=== PATIENT | female | born 1970 | race Caucasian/White ===

== ENCOUNTER 2017-01-01 08:20 | Emergency (ER) | payer BC ==
[2017-01-01 08:31] VITALS: BP 87/58
--- NOTE | 2017-01-01 08:42 | UC ---
Throat Pain/Nasal Eriberto HPI - HPI Summary HPI Summary: The patient comes in today for: 1. Sore throat: Onset: "A couple of days." Palliative/provocative: Swallowing does not hurt 'that much' to swallow. Quality: Sore Region: Bilateral posterior pharynx. Severity: 6/10 Time: Constant. Associated symptoms: Fevers: No temperature taken Cough: dry. Rhinitis: Positive, not-clear Sinus pressure: Present Upper tooth aching: None. * - History of Current Complaint Chief Complaint: UCRespiratory Stated Complaint: SORE THROAT,SWOLLEN GLANDS,FEVER Hx Obtained From: Patient Hx Last Menstrual Period: 12/30/11 - Allergies/Home Medications Allergies/Adverse Reactions: Allergies Allergy/AdvReac Type Severity Reaction Status Date / Time Fluconazole [From Diflucan] Allergy See Comment Verified 01/01/17 08:31 Lactose Intolerance (GI) Allergy GI Upset Verified 01/01/17 08:31 Home Medications: Home Medications Congaplex 1 tab PO TID 01/01/17 [History Confirmed 01/01/17] Lact Enz 2 tab PO TID 01/01/17 [History Confirmed 01/01/17] Wheat Germ Oil 1 applic TOPICAL BID 01/01/17 [History Confirmed 01/01/17] PMH/Surg Hx/FS Hx/Imm Hx Previously Healthy: Yes Endocrine History Of: Denies: Diabetes, Thyroid Disease, Hyperthyroidism, Hypothyroidism, Dyslipidemia Cardiovascular History Of: Denies: Cardiac Disorders, Hypertension, Pacemaker/ICD, Myocardial Infarction , Congestive Heart Failure, Atrial Fibrillation, Deep Vein Thrombosis, Bleeding Disorders Respiratory History Of: Reports: Pneumonia - x 2 in the past 2 years Denies: COPD, Asthma, Bronchitis, Pulmonary Embolism GI/ History Of: Denies: Gastroesophageal Reflux, Ulcer, Gastrointestinal Bleed, Gall Bladder Disease, Kidney Stones, Diverticulitis, Renal Disease, Urosepsis Neurological History Of: Denies: TIA, CVA, Dementia, Seizures, Migraine Psychological History Of: Reports: Depression - In the past. Denies: Anxiety, Bipolar Disorder, Schizophrenia, Post Traumatic Stress Disorder Cancer History Of: Denies: Lung Cancer, Colorectal Cancer, Breast Cancer, Prostate Cancer, Cervical Cancer Other History Of: Negative For: HIV, Hepatitis B, Hepatitis C, Anticoagulant Therapy - Surgical History Surgical History: Yes Surgery Procedure, Year, and Place: c section, henira repair - Family History Known Family History: Negative: Cardiac Disease, Hypertension - Social History Occupation: Employed Full-time Alcohol Use: None Substance Use Type: None Smoking Status (MU): Never Smoked Tobacco - Immunization History Most Recent Influenza Vaccination: Fall 2014 Review of Systems Constitutional: Negative Skin: Negative Eyes: Negative ENT: Sore Throat, Nasal Discharge Respiratory: Cough Cardiovascular: Negative Gastrointestinal: Negative Genitourinary: Negative All Other Systems Reviewed And Are Negative: Yes Physical Exam Triage Information Reviewed: Yes Appearance: Well-Appearing, No Pain Distress, Well-Nourished Vital Signs: Initial Vital Signs Temp 98.4 F 01/01/17 08:25 Pulse 80 01/01/17 08:25 Resp 16 01/01/17 08:25 BP 87/58 01/01/17 08:25 Pulse Ox 98 01/01/17 08:25 Vital Signs Reviewed: Yes Eyes: Positive: Conjunctiva Clear. Negative: Discharge ENT: Positive: Hearing grossly normal. Negative: Pharyngeal erythema, Nasal congestion, Nasal drainage, TM bulging, TM dull, TM red, Tonsillar swelling, Tonsillar exudate Dental: Negative: Gross Decay/Caries @, Dental Fracture @ Neck: Positive: Supple, Nontender, No Lymphadenopathy. Negative: Nuchal Rigidity Respiratory: Positive: Lungs clear, No respiratory distress, No accessory muscle use. Negative: Crackles, Wheezing Cardiovascular: Positive: RRR, No Murmur Abdomen Description: Positive: Nontender, No Organomegaly, Soft. Negative: Distended, Guarding Musculoskeletal: Positive: Strength Intact, ROM Intact, No Edema Neurological: Positive: Alert, Muscle Tone Normal Psychological: Negative: Age Appropriate Behavior, Consolable Skin: Negative: rashes, breakdown Throat Pain/Nasal Course/Dx - Course Assessment/Plan: The patient was told that her strep test was normal. She was told that due to her lightly purulent rhinitis, that she may be having an early sinusitis. Treatment options were offered. She stated that she would like an antibiotic in the event she continues to worsen. Viscous lidodcaine will be also prescribed. - Differential Dx/Diagnosis Differential Diagnosis/HQI/PQRI: Laryngitis, Pharyngitis Provider Diagnoses: Upper respiratory infection. Sinusitis. PHaryngitis Discharge - Discharge Plan Condition: Stable Disposition: HOME Patient Education Materials: Pharyngitis (ED), Sinusitis (ED) Referrals: Zoya Aviles MD [Primary Care Provider] - 1 Week (Please see your primary care provider in about one to two weeks to see how well you are doing. If you get worse, please be seen sooner.)
== END 2017-01-01 09:35 | disposition home or self-care (01) ==
LOC: UCCORT 08:20
DX: J06.9 Acute upper respiratory infection, unspecified (principal); J32.9 Chronic sinusitis, unspecified; J02.9 Acute pharyngitis, unspecified; F32.9 Major depressive disorder, single episode, unspecified; Z88.8 Allergy status to other drugs, medicaments and biological substances
CPT/HCPCS: 87651; 99212; G0463

== ENCOUNTER 2018-03-06 10:41 | Emergency (ER) | payer BC ==
[2018-03-06 11:21] VITALS: BP 94/58
--- NOTE | 2018-03-06 11:43 | UC ---
Neck Pain HPI - HPI Summary HPI Summary: Patient presents complaining of combination of pain and stiffness to the left side of her neck since August of this year. She's been treated with chiropractic sessions to give her some partial relief as well as a TENS unit which also gives her partial relief. She's been taking ibuprofen as well which gives her no relief. Last evening the discomfort got worse. She denies any history of injury. She does note some tingling into her left arm since December that seems to be getting worse as well. She denies any weakness to the arm. She has no associated headache, chest pain or fever and offers no other complaints. - History of Current Complaint Chief Complaint: UCGeneralIllness Stated Complaint: NECK PAIN Time Seen by Provider: 03/06/18 11:35 Hx Obtained From: Patient Hx Last Menstrual Period: 02/23/18 Timing: Constant Pain Intensity: 8 Aggravating Factors: Movement - of neck Alleviating Factors: Other: - holding L armover her head while bent at the elbow Associated Signs & Symptoms: Negative: Fever, Nuchal Rigity, Headache - Allergies/Home Medications Allergies/Adverse Reactions: Allergies Allergy/AdvReac Type Severity Reaction Status Date / Time fluconazole Allergy See Comment Verified 03/06/18 11:20 lactose Allergy GI Upset Verified 03/06/18 11:20 PMH/Surg Hx/FS Hx/Imm Hx - Additional Past Medical History Additional PMH: mild scoliosis Other History Of: Negative For: HIV, Hepatitis B, Hepatitis C, Anticoagulant Therapy - Surgical History Surgical History: Yes Surgery Procedure, Year, and Place: c section, hernia repair - Family History Known Family History: Positive: None Negative: Cardiac Disease, Hypertension - Social History Occupation: Employed Full-time Alcohol Use: None Substance Use Type: None Smoking Status (MU): Never Smoked Tobacco - Immunization History Most Recent Influenza Vaccination: Fall 2014 Vaccination Up to Date: Yes Review Of Systems Constitutional: Positive: Negative Skin: Positive: Negative ENT: Positive: Negative Respiratory: Positive: Negative Cardiovascular: Positive: Negative Gastrointestinal: Positive: Negative Genitourinary: Positive: Negative Musculoskeletal: Positive: Other: - L neck pain with tingling LUE Neurological: Positive: Negative Psychological: Positive: Negative All Other Systems Reviewed And Are Negative: Yes Physical Exam Triage Information Reviewed: Yes Appearance: Well-Appearing Vital Signs: Initial Vital Signs Temp 99.0 F 03/06/18 11:12 Pulse 70 03/06/18 11:12 Resp 17 03/06/18 11:12 BP 94/58 03/06/18 11:12 Pulse Ox 99 03/06/18 11:12 Vital Signs Reviewed: Yes Eyes: Positive: Conjunctiva Clear ENT: Positive: Pharynx normal, TMs normal. Negative: Nasal congestion, Nasal drainage Neck: Positive: Supple, No Lymphadenopathy. Negative: Nuchal Rigidity Respiratory: Positive: Lungs clear, Normal breath sounds Cardiovascular: Positive: RRR, No Murmur Abdomen Description: Positive: Nontender, No Organomegaly, Soft Bowel Sounds: Positive: Present Musculoskeletal: Positive: Other: - Patient is holding her left upper extremity above her head and flexed at the elbow. She lowered it for exam. Inspection of the cervical, thoracic and lumbar region shows a slight scoliosis in the lumbar region otherwise no gross deformity swelling or discoloration. The spinal processes are nontender to palpation. Patient is exquisitely tender to palpation to the left lateral trapezius muscle as well as the left medial scapular border. She has 5 out of 5 strength and 2+ reflexes 4. She has full range of motion to her extremities 4. Range of motion throughout her cervical spine and back is intact; however, she notes increasing discomfort with active range of motion of cervical spine level. Neurological: Positive: Alert Psychological: Positive: Age Appropriate Behavior Skin Exam: Normal Diagnostics - Radiology No standard instances Radiology Interpretation Completed By: Radiologist - #. Multilevel mild degenerative spondylosis and facet joint osteoarthritis with progression compared with the 2012 exam. #. Minimal degenerative C4-C5 anterolisthesis is new. Neck Pain Course/Dx - Differential Dx/Diagnosis Provider Diagnoses: L neck pain. Cervical radiculopathy Discharge - Sign-Out/Discharge Documenting (check all that apply): Patient Departure - Discharge Plan Condition: Stable Disposition: HOME Prescriptions: Cyclobenzaprine TAB* [Flexeril 10 MG TAB*] 10 mg PO TID PRN #10 tab PRN Reason: Spasms - Muscle methylPREDNISolone [Medrol Dosepak 4 MG*] 0 mg PO .SEE [employer]CTION #1 tab Patient Education Materials: Cervical Radiculopathy (ED), Neck Pain (ED) Referrals: Delia Gifford PA [Primary Care Provider] - 5 Days Additional Instructions: FOLLOW UP PT NEXT AVAILABLE APPOINTMENT - Billing Disposition and Condition Condition: STABLE Disposition: Home
[2018-03-06] MEDS ORDERED: Cyclobenzaprine TAB* 10 MG PO ONE (12:37)
--- NOTE | 2018-03-06 12:50 | RAD ---
Indication: Intermittent neck pain for 6 months with progression over the past day. Radiation to the LEFT arm. Comparison: February 15, 2012 Technique: AP, open-mouth odontoid, lateral, and oblique views cervical spine. Report: Minimal degenerative C4-C5 anterolisthesis is new. Alignment is otherwise unremarkable. Negative for fracture. Minimal vertebral endplate osteophytosis from C3-C4 through C5-C6. Negative for significant disc space narrowing. Mild facet joint osteoarthritis from C3-C4 through C6-C7. The oblique views are negative for osseous foraminal stenosis. Unremarkable prevertebral soft tissue contours. IMPRESSION: #. Multilevel mild degenerative spondylosis and facet joint osteoarthritis with progression compared with the 2012 exam. #. Minimal degenerative C4-C5 anterolisthesis is new.
== END 2018-03-06 13:06 | disposition home or self-care (01) ==
LOC: UCCORT 10:41
DX: M54.12 Radiculopathy, cervical region (principal); M41.9 Scoliosis, unspecified; Z88.3 Allergy status to other anti-infective agents
CPT/HCPCS: 72050; 99212; A9270-GY; G0463

== ENCOUNTER 2018-03-24 17:16 | Emergency (ER) | payer BC ==
--- OUTSIDE RECORDS SUMMARY | 2018-03-24 17:37 | XMS REPORT ---
:1970 External Reference #:[id number] Author Organization [facility] Address [address], [address] [place] [address] Phone [phone] Care Team Providers Name Role Phone Delia Gifford, RPAC Care Team Information Traveling [employer] Unavailable Delia Gifford RPAC Primary Care Physician Unavailable Payers Type Date Identification Numbers Payment Provider Subscriber Commercial Policy Number: [id number] Edison Elias Russ PayID: [id number] [address] [address] [place] [address] Problems Date Description Provider Status Onset: 07/26/2011 Anxiety state Delia Polvadera, RPAC Active Onset: 01/15/2016 Chronic low back pain Delia Balta, RPAC Active Note: since teens Onset: 03/06/2018 Degenerative joint disease involving Delia Polvadera, RPAC Active multiple joints Note: Cervical spine Onset: 03/12/2018 Pain in left arm Delia Polvadera, RPAC Active Onset: 03/12/2018 Cervical spondylosis without Delia Polvadera, RPAC Active myelopathy Onset: 01/10/2012 Acute gastritis Delia Polvadera, RPAC Inactive Inactive: 08/16/2017 Family History Date Family Member(s) Problem(s) Comments General Prevalent cholelithiasis maternal side Father Cataracts Father 72 Father Wears glasses Father Benign Prostatic Hypertrophy Mother Alive and well Mother 72 Mother Wears Glasses First Son Alive First Son 17 First Son Wears Glasses Second Son Alive Second Son 13 First Brother Alive First Brother 48 First Brother Wears Glasses First Maternal Cousin Premenopausal breast [place] Social History Type Date Description Comments Marital Status Lives With Lives With Sons 2 Diet Healthy, Well Balanced Diet Patient is on a gluten-free diet 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 times a day as needed neck pain . Methylprednisolone 03/19 Active TBPK 4mg 1unit Dose as M79.602 s directed Alex Smallwood Hydrocodone-Ibuprofe 03/12 Active Tablets 7.5-200mg 60tab One tab M47.22 s po q 8 hr Smallwood, prn pain M.D. Betafood Active 1 tablet Unknown (Nutritional /0000 3 times Supplement) daily Atronex (Nutritional Active 1 tabe 3 Unknown Supplement) /0000 times daily Hypothalamus PMG Active 1 tab 3 Unknown (Nutritional /0000 times Supplement) daily. Orchex (Nutritional Active 1 tab 3 Unknown Suppliment) /0000 times daily. Lactic Acid Yeast Active 1 tab 2 Unknown (Nutritional /0000 times Supplement) daily. Guamanian Black Radish Active 1 tab 3 Unknown (Nutritional /0000 times Suppliment) daily. Multizyme 00 Active 1 tab 2 Unknown (Nutritional /0000 times Suppliment) daily. Cataplex Acp Active 1 tab 3 Unknown (Nutritional /0000 times Supplement) daily. Calm (Nutritional 00 Active 1 tab 3 Unknown Suppliment) /0000 times daily. Calm Magensium Active 1 tab 2 Unknown (Nutritional /0000 times Supplement) daily. No Active 07/31 Hx Unknown Medications /2016 - 07/31 Various Nutritional 01/19 Hx Unknown Supplements /2016 - 03/12 Azithromycin 05/30 Hx Tablets 250mg 6tabs take 2 Stacy tabs on Christine, - day 1 and MD 08/01 take one tab days 2-5 Physical Therapy 02/28 Hx low back Thomas Aceves Order pain, Luis Antonio DO - please 08/01 evaluate /2015 and treat. 2-3 times per week for 6 weeks No Active 01/14 Hx Thomas Vitale. Medications Luis Antonio DO - 01/14 Nystatin 01/14 Hx Cream 210657Sxz 30gm thin B37.3 Stacy t/GM layer to Christine, - affected 03/01 area times a day Meloxicam 01/14 Hx Tablets 15mg 30tab 1 tab by M46.1 Thomas Vitale. /2015 s mouth Luis Antonio DO - every day 05/30 with food Multivitamin Adult Hx Tablets 1 by Unknown /0000 mouth every day Gabapentin Hx Capsules 300mg 120ca 1 capsule M47.22 Conrad /0000 ps by mouth Smallwood, - every 6 M.D. 03/19 hr. /2018 Methylprednisolone Hx Tablets 4mg 1 tab by Unknown /0000 mouth - every day 03/19 after meals Immunizations CPT Code Status Date Vaccine Lot # [id number] Given 08/01/2016 Influenza Virus Vaccine Split Virus Use For [id number] Individual 3Yr Older [id number] Given 06/12/2015 Influenza Vaccine (Fluzone) Age 3 And Older 70614 Given 07/21/2014 flu vaccination 61174 Given 06/05/2013 flu vaccination 09559 Given 07/25/2012 flu vaccination 92884 Given 04/18/2011 flu vaccination Vital Signs Date Vital Result Comment 03/19/2018 BP Systolic Sitting Right Arm 108 mmHg BP Diastolic Sitting Right Arm 62 mmHg Body Temperature 98.7 F Heart Rate 75 /min reg Respiratory Rate 24 /min Height 60.75 inches 5'0.75" Weight 125.00 lb BMI (Body Mass Index) 23.8 kg/m2 BSA (Body Surface Area) 1.54 m2 Cuero body weight in kilograms 47 O2 % BldC Oximetry 98 % ra 03/12/2018 BP Systolic Sitting Right Arm 102 mmHg BP Diastolic Sitting Right Arm 60 mmHg Heart Rate 88 /min Respiratory Rate 18 /min Height 60.75 inches 5'0.75" Weight 123.25 lb BMI (Body Mass Index) 23.5 kg/m2 BSA (Body Surface Area) 1.53 m2 Cuero body weight in kilograms 47 O2 % BldC Oximetry 98 % ra 07/31/2017 BP Systolic Sitting Right Arm 88 mmHg BP Diastolic Sitting Right Arm 62 mmHg Heart Rate 75 /min Height 60.75 inches 5'0.75" Weight 123.00 lb BMI (Body Mass Index) 23.4 kg/m2 BSA (Body Surface Area) 1.53 m2 Cuero body weight in kilograms 47 O2 % BldC Oximetry 95 % 05/30/2016 BP Systolic Sitting Right Arm 102 mmHg BP Diastolic Sitting Right Arm 62 mmHg Body Temperature 97.8 F Height 60 inches 5'0" Weight 128.12 lb BMI (Body Mass Index) 25.0 kg/m2 BSA (Body Surface Area) 1.54 m2 01/15/2016 BP Systolic Lying Down Resting Right Arm 102 mmHg BP Diastolic Lying Down Resting Right Arm 64 mmHg Body Temperature 98.5 F Height 60 inches 5'0" Weight 129.38 lb BMI (Body Mass Index) 25.3 kg/m2 BSA (Body Surface Area) 1.55 m2 Cuero body weight in kilograms 45 07/30/2014 BP Systolic 98 mmHg BP Diastolic 60 mmHg Results Test Date Test Result H/L Range Note Basic Metabolic Panel 03/08/2018 Glucose 85 mg/dL 74-106 1 BUN 11 mg/dL 7-18 1 Creatinine 0.7 mg/dL 0.6-1.3 1 Glom Filtration Rate, Estimate >60 mL/min >60 1 If >60 mL/min >60 1, 2 BUN/Creat 15.7 ratio 1 Sodium 142 mmol/L 136-145 1 Potassium 3.9 mmol/L 3.5-5.1 1 Chloride 109 mmol/L High 98-107 1 Carbon Dioxide 29 mmol/L 21-32 1 Anion Gap 4 mEq/L Low 8-16 1 Calcium 7.9 mg/dL Low 8.5-10.1 1 Laboratory test 03/07/2018 Sedimentation Rate 7 mm/hr 0-20 3, 4 finding Laboratory test 12/24/2013 Urine HCG (Qualitative) Negative Negative 5 finding Laboratory test 11/18/2013 Free T4 0.68 ng/mL 0.61-1.12 finding Prolactin 13.8 ng/mL 1.0-25.0 TSH (Thyroid Stimulating Horm) 4.11 IU/mL 0.34-5.60 CBC No Diff 11/18/2013 Hematocrit 37 % 35-47 Hemoglobin 12.8 g/dL 12.0-16.0 Mean Corpuscular HGB Conc 35 g/dL 31-36 Mean Corpuscular Hemoglobin 31 pg 27-31 Mean Corpuscular Volume 91 fL 80-97 Mean Platelet Volume 9 um3 7.4-10.4 Platelet Count 249 10^3/uL 150-450 Red Blood Count 4.08 10^6/uL 4.0-5.4 Red Cell Distribution Width 14 % 10.5-15 White Blood Count 5.6 10^3/uL 4.8-10.8 Chlamydia/GC Monica 06/05/2013 Chlamydia Trachomatis, Monica Negative Negative Neisseria Gonorrhoeae, Monica Negative Negative Please note: See Note 6 Laboratory test finding 08/20/2012 Antinuclear Antibodies, Ifa Negative . 7 Bas% 0.0 % 0.0-1.1 Baso # 0.00 K/uL 0.0-0.1 Beef <0.08 Class 0 kU/L Chicken <0.08 Class 0 kU/L Chocolate/Happy F052 <0.08 Class 0 kU/L Complement C3, Serum 103 mg/dL 90-180 8 Complement C4, Serum 24 mg/dL 9-36 9 Complement, Total (CH50) 56 U/mL 22-60 10 Marble <0.08 Class 0 kU/L 11 Egg (Whole) <0.08 Class 0 kU/L Eo% 0.0 % 0.0-6.6 Eos # 0.00 K/uL 0.0-0.5 F033 [place]ton <0.08 Class 0 kU/L Hematocrit 34.1 % Low 36.0-46.1 Hemoglobin 11.7 gm/dL 11.6-15.8 Immunoglobulin E,Total 3 IU/mL 0-100 Lymph # 2.09 K/uL 0.8-3.4 Lymph % 34.8 % 17.0-46.1 Mean Cell Volume 93.7 fl 80.9-99.0 Mean Corpuscular HGB 32.1 pg 25.9-32.7 Mean Corpuscular HGB Conc 34.3 g/dL 30.8-34.3 Mean Platelet Volume 10.0 fL 8.9-12.4 Milk (Cow) <0.08 Class 0 kU/L [place] # 0.48 K/uL 0.3-0.9 [place] % 8.0 % 4.3-13.2 Neut# 3.43 K/uL 1.0-7.0 Neut% 57.2 % 40.4-72.8 Peanut <0.08 Class 0 kU/L Platelet Count 229 K/uL 155-360 Red Blood Count 3.64 M/uL Low 3.90-5.40 Red Cell Distri Width %CV 12.0 % 11.7-14.4 Red Cell Distri Width SD 39.7 fl 3-47 Rice <0.08 Class 0 kU/L Soybean <0.08 Class 0 kU/L Thyroid Stim Hormone 1.02 uIU/mL 0.49-4.67 Thyroxine (T4) 7.0 g/dL 5.3-14.8 Tomato <0.08 Class 0 kU/L 12 Triiodothyronine,Total 97 ng/dL 71-180 Tryptase 3.0 ug/L 2.2-13.2 Wheat <0.08 Class 0 kU/L White Blood Count 6.0 K/uL 3.1-10.7 Laboratory test finding 05/23/2012 ThinPrep Pap: Cervix/Endocx See Note 13 Vitamin D, 25 Hydroxy 04/19/2012 25-Hydroxy Vitamin D Total 52 ng/mL () 14 25-Hydroxy Vitamin D2 <4.0 ng/mL () 25-Hydroxy Vitamin D3 52 ng/mL () Liver Function Panel 04/19/2012 Albumin 4.4 GM/DL 3.6-5.4 Albumin/Globulin Ratio 1.9 1-3 Alkaline Phosphatase 44 U/L 30-110 Alt (SGPT) 18 U/L 14-54 Ast (Sgot) 25 U/L 12-42 Bilirubin Direct 0.1 mg/dL 0.1-0.5 Bilirubin Total 0.6 mg/dL 0.4-1.5 15 Globulin 2.3 GM/DL 2-4 Indirect Bilirubin 0.5 mg/dL 0.3-1.0 16 Total Protein 6.7 GM/DL 6.2-8.1 CBC Auto Diff 04/19/2012 Abs Basophils 0 0-0.2 Abs Eosinophils 0 0-0.6 Abs Lymphs 2.6 1.0-4.8 Abs Mononuclear 0.5 0-0.8 Absolute Neutrophil Count 3.7 1.5-7.7 Basophil % 0.2 % 0-2 Eosinophil % 0.1 % 0-6 Gran % 54.2 % 38-83 Hematocrit 39 % 35-47 Hemoglobin 14.0 g/dL 12.0-16.0 Lymph % 37.5 % 20-45 Mean Corpuscular HGB Cone 36 g/dL 32-36 Mean Corpuscular Hemoglob 34 pg High 27-31 Mean Corpuscular Volume 93 um3 79-97 Mean Platelet Volume 8.1 um3 7.4-10.4 Mononuclear % 8.0 % 1-9 Platelet Count 267 CUMM 150-450 Red Cell Count 4.18 CUMM Low 4.2-5.4 Redcell Distribution WDTH 12 % 10.5-15 White Blood Count 6.9 CUMM 4.8-10.8 Basic Metabolic Panel 04/19/2012 Anion Gap 6.0 mmol/L 2-11 17 BUN 12 mg/dL 6-24 BUN/Creatinine Ratio 15.0 8-20 Calcium 9.4 mg/dL 8.1-9.9 Chloride 99 mmol/L Low 101-111 Co2 (Carbon Dioxide) 30.0 mmol/L 22-32 Creatinine 0.8 mg/dL 0.50-1.40 Glucose 96 mg/dL 70-100 One Over Creatinine 1.25 Potassium 3.7 mmol/L 3.5-5.0 Sodium 135 mmol/L 135-145 eGFR 101.7 > 60 18 eGFR Non- 79.0 > 60 Laboratory test finding 04/19/2012 Estradiol 142 pg/mL 19 FSH 10.12 MIU/ML 20 TSH 2.86 MIU/ML 0.34-5.60 Varicella Zoster 01/01/2012 M <See Note> 21 Culture Laboratory test 10/06/2011 Gastric See Note 22 finding Biopsy/Polyp Stool Occult Blood 3 08/04/2011 Occult Blood #1 Pos Spec MCR Stool Occult Blood #2 Stool Pos Occult Blood #3 Stool Pos Urine Culture & Sensitivi 07/26/2011 M <See Note> 23 Laboratory test finding 04/18/2011 Cytology Pap See Note 24 1 CERVICAL RADICULOPATHY 2 Note: Persistent reduction for 3 months or more in an eGFR <60 mL/min/1.73 m2 defines CKD. Patients with eGFR values >/=60 mL/min/1.73 m2 may also have CKD if evidence of persistent proteinuria is present. The original MDRD equation for estimated GFR is not valid for patients less than 18 years of age. Additional information may be found at www.kdoqi.org. 3 L ARM PINCHED NERVE CAUSING PAIN 4 Method: Sediplast Modified Westergren 5 FIRST MORNING SPECIMENS GENERALLY CONTAIN THE HIGHEST CONCENTRATION OF HCG AND ARE RECOMMENDED FOR EARLY DETECTION OF . 6 Acceptable specimens for this test are male urethral swab, endocervical swab and liquid based pap specimens, vaginal swabs in APTIMA transports and first void urine. See online Directory of Services for test number for rectal and pharyngeal specimens. Performed at: [address] [id number] Speech Language Pathologist Assistant: Nemo Taveras MD, Phone: [phone] 7 Negative <1:80 Borderline 1:80 Positive >1:80 8 INFCE Result Units: mg/dL Adult 9 INFCE Result Units: mg/dL Adult 10 Performed at: [address] [id number] Speech Language Pathologist Assistant: Nemo Taveras MD, Phone: [phone] 11 Levels of Specific IgE Class Description of Class -- ----- <0.08 0 Negative 0.08 - 0.15 I 0.16 - 0.50 II Increasing 0.51 - 2.50 III levels 2.51 - 12.50 IV of 12.51 - 62.50 V Specific IgE 62.51 - >100.00 Antibody 12 Test(s) 576020-O228-TnF Chocolate/Happy; 672667- U220-GkO Beef; 725003-S137 -IgE Chicken; 377088- B675-EdF Egg, Whole were developed and had performance characteristics determined by [facility]. These tests have not been cleared or approved by the U.S. Food and Drug Administration. The FDA has determined that such clearance or approval is not necessary. These tests are used for clinical purposes. These should not be regarded as investigational or for research. 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 PAP ACCESSI QUESTIONNAIRE 08/30 PERTINENT CLINICAL HISTORY FOR PAP (FARMER DIVERSIFIED CROPS) CYTOLOGY (Check all that apply) : ? N Post ? N Menopause? N LMP date: 04/26/12 Last Pap: at [facility]? N Abnormal Pap? If Yes, date: If patient had related surgical procedure: Related Therapy: Significant Clinical History: ANNUAL ===== DISCLAIMER: The Pap smear is a screening test and not a diagnostic procedure. False negative and false positive results can and do occur for a number of reasons. Regular screening provides an aid in detecting treatable cervical abnormalities, but should not be used as the only means for detecting cervical dysplasia and carcinoma. ----- GABRIELLE Ring 05/25/12 1724 ----- 14 -- REFERENCE VALUE -- 25-HYDROXY D TOTAL (D2+D3) Optimum levels in the normal population are 25-80 Test Performed by: [facility] - [address] [address] Continuous Miner Operator: Jacky Vora III, M.D. 15 A metabolite of Naproxen, O-desmethylnaproxen, has been shown to interfere with the [place] method for measuring total bilirubin. Samples from patients who have taken Naproxen have shown spurious elevation in total bilirubin levels. 16 Please note updated reference range, effective 03/11/10 17 Anion gap measurement may be of limited value in the presence of any alkalosis, especially in a combined acid base disorder. . 18 Because ethnic data is not always readily available, this report includes an eGFR for both -Americans and non- Americans. The National Kidney Disease Education Program (NKDEP) does not endorse the use of the MDRD equation for patients that are not between the ages of 18 and 70, are , have extremes of body size, muscle mass, or nutritional status, or are non- or non-. According to the National Kidney Foundation, irrespective of diagnosis, the stage of the disease is based on the level of kidney function: Stage Description GFR(mL/min/1.73 m(2)) 1 Kidney damage with normal or decreased GFR 90 2 Kidney damage with mild decrease in GFR 60- 89 3 Moderate decrease in GFR 30-59 4 Severe decrease in GFR 15-29 5 Kidney failure <15 (or dialysis) 19 EXPECTED RESULTS (pg/ml) MALES 20-75 POSTMENOPAUSAL FEMALES 20-88 NON FEMALES Mid-Follicular Phase 24-114 Periovulatory 62-534 Mid Luteal Phase 80-273 20 NORMAL RANGE MALES 1 - 20 NORMALLY MENSTRUATING FEMALES - Follicular Phase 3 - 9 - Mid-Cycle Peak 4 - 23 - Luteal Phase 1 - 6 POSTMENOPAUSAL FEMALES 16 - 114 . 21 ------- RUN DATE: 01/04/12 [facility] NMI LIVE PAGE 1 RUN TIME: 1432 Specimen Inquiry RUN USER: INTERFACE ----- Name: ANNALISE RUSS Accsony#: [id number] Status: DEP CLI Re01/01/12 Age/Sex: 41/F Unit#: [id number] Location: [facility] [place] : 70 ----- SPEC #: [id number] BETTYE: 01/01/12-1355 STATUS: COMP REQ #: [id number] RECD: 01/02/[address] [facility] [address]: King MELO,Tanisha Aceves SOURCE: [facility] ENTR: 01/02/12- [address] [facility] [address]: Stefan MELO,Zoya SPDESC: WRIST,RIGH ORDERED: VIRUS CULT DERM ACT WKST: SO 01/04/12 #1 ----- Procedure Result Verified Site ----- > VIRUS CULTURE - DERMAL Final 01/04/12-1432 ML HERPES SIMPLEX RAPID PCR NEGATIVE VARICELLA BY RAPID PCR NEGATIVE Analyte Specific Reagent. This test was developed and its performance characteristics determined by Laboratory Medicine and Pathology, [facility], [facility]. This test has not been cleared or approved by the U.S. Food and Drug Administration. Test performed by: [facility] [address] [place] [id number] ----- - [facility] State Permit #[id number] [address] [place] [address] ----- DEPARTMENT OF PATHOLOGY, [address] [place] [address] [facility] Permit #[id number] Dustin Salinas M.D. Director Ciara Vazquez M.D. Dry Wall N[employer]er ----- 22 OPERATION/PROCEDURE Colonoscopy, EGD DIAGNOSIS: PART 1: "RANDOM COLON BIOPSIES": BENIGN, NONDYSPLASTIC AND NONINFLAMED COLONIC MUCOSA. ESSENTIALLY NORMAL DUODENAL MUCOSA. PART 2: "DUODENAL BIOPSIES": ESSENTIALLY NORMAL DUODENAL MUCOSA. PART 3: "STOMACH BIOPSIES": REACTIVE GASTROPATHY, DIFFERENTIAL DIAGNOSIS INCLUDES ALKALINE REFLUX, NSAID INJURY AND EARLY PEPTIC INJURY. NO HELICOBACTER SEEN WITH SPECIAL STAIN. CADEN/mireya INTERPRETATION COMMENT Part 1 has presumed duodenal tissue contaminant. GROSS Part 1; "RANDOM COLON BIOPSIES". The specimen is received in an appropriately labeled container. This contains seven strip-like childers colored pieces of soft tissue measuring up to 0.3 cm.; filtered and submitted in toto within a single cassette. Part 2; "DUODENAL BIOPSIES". The specimen is received in an appropriately labeled container. This contains three rounded pink colored pieces of soft tissue measuring up to 0.2 cm.; filtered and submitted in toto within a single cassette. Part 3; "STOMACH BIOPSIES". The specimen is received in an appropriately labeled container. This contains two strip-like pink colored pieces of soft tissue measuring up GROSS (Continued) to 0.4 cm.; filtered and submitted in toto within a single cassette. WS/clf MICROSCOPIC Part 1: Sections reveal mildly edematous fragments of colonic mucosa. There is no significant inflammation. There are no specific features such as granulomas, subepithelial collagen thickening, viral nuclear changes, abnormal eosinophil or lymphocytic infiltrates, vascular changes or pseudomembranes noted. Sections reveal duodenal mucosa with well-oriented crypts, with normal maturation of lining cells to the surface. The stroma contains a normal degree of lymphoplasmacytic infiltration. Part 2: Sections reveal duodenal mucosa with well-oriented crypts, with normal maturation of lining cells to the surface. The stroma contains a normal degree of lymphoplasmacytic infiltration. Part 3: Sections show glandular elongation, tortuosity, and hypercellularity of gastric pits, foveolar hyperplasia, and villiform transformation of the mucosa. The glands appear more angular than usual. Foveolar cells show mild mucin depletion and vacuolization. There is capillary congestion, vasodilatation and edema. Smooth muscle fibers extend high into the lamina propria. There are sparse amounts of chronic inflammatory cells. There are no Helicobacter-type bacteria identified with Warthin-Starry staining. The controls are adequate. PRE OPERATIVE DIAGNOSIS Diarrhea, bleed, abdominal pain, bloat REVIEW CODE CODE: I ----- VERONICA Piper MD 10/07/11 1338 ----- ------- RUN DATE: 07/28/11 [facility] NMI LIVE PAGE 1 RUN TIME: 1058 Specimen Inquiry RUN USER: INTERFACE ----- Name: ANNALISE RUSS Status: REG REF Re07/26/11 Age/Sex: 40/F Unit#: [id number] Location: [facility] : 70 ----- SPEC #: [id number] BETTYE: 07/26/11 STATUS: COMP REQ #: [id number] RECD: 07/26/11-[address] URINE ENTR: 07/26/11-[address]: IVAN: ORDERED: URINE C S QUERIES: SPECIMEN DESCRIPTION: URINE, RANDOM ACT WKST: UR 07/28/11 #1 ----- Procedure Result Verified Site ----- > URINE CULTURE SENSITIVI Final 07/28/11-1057 ML FINAL: NO GROWTH DAY 2 (<1,000 CFU/mL) ----- ML - [facility] State Permit #[id number] [address] [place] [address] ----- DEPARTMENT OF PATHOLOGY, [address] [place] [address] [facility] Permit #[id number] Alex Aquino M.D. Dry Wall Nailer ----- 24 Cytology Laboratory [address] [place] [address], [address] [place] [address] CYTOLOGY REPORT Name: Annalise Russ : 1970 (Age: 40) Sex: F Location: [facility] Soc. Sec. #: [id number] Date Collected: 04/18/2011 Billing #: [id number] Date Received: 04/19/2011 Physician(s): ZOYA ARNOLD MD Source of Specimen: ENDOCERVICAL/ECTOCERVICAL THIN PREP Clinical Information: Date of Last Menstrual Period: 03/26/11 Menstrual History: Regular Specimen Adequacy: SATISFACTORY FOR EVALUATION. NO ENDOCERVICAL/TRANSFORMATION ZONE. General Categorization: NEGATIVE FOR INTRAEPITHELIAL LESION OR MALIGNANCY. kfs Electronic Signature MAYITO Vela (ASCP) Reported: 04/22/2011 Also seen by:MAYITO Vela (ASCP ) Cytology Outreach [facility] ICD-9 Code(s) V72.31 Procedures Date CPT Code Description Status Comment 08/16/2017 Mammogram Completed Subsequent bx with Kaiden Jackson 03/01/2017 84624 Eye Exam New Patient Completed Comprehensive 12/24/2013 25401 Anesthesia, Hysteroscopy, Completed Hystersalpingography 10/06/2011 Colonoscopy Completed 10/01/2010 39684 Pressurized/Non-Pressurized Completed Inhalation Treatment,Acute Obstructio Encounters Type Date Location Provider CPT E/M Dx Office Visit 03/12/2018 1:30p Primary Care Office Delia Gifford 12359 M47.22 [facility] M79.602 Office Visit 07/31/2017 1:00p Primary Care Office Delia Gifford 44602 Z01.419 [facility] Z12.4 Z12.31 Z80.3 Office Visit 05/30/2016 2:20p [place] [address] J06.9 Office Visit 01/15/2016 1:45p Primary Care Office Delia Gifford [facility] [address] B37.3 R51 M54.5 M46.1 Plan of Care Future Appointment(s):07/31/2018 1:00 pm - [facility]03/19/2018 - Delia Gifford, RPACM47.22 Other spondylosis with radiculopathy, cervical regionNew Medication:Lyrica 75 mgComments:Discussed recent studies, medication use, options for tx.Substitute Lyrica for gabapentin.Referral:Nidia Norman, Pain Management-oymzqrmxbC00.602 Pain in left armNew Medication:Methylprednisolone 4 mgComments:Will restart the methylprednisolone taper
--- OUTSIDE RECORDS SUMMARY | 2018-03-24 17:37 | XMS REPORT ---
:1970 External Reference #:[id number] Author Organization [facility] Address [address], [address] [place] [address] Phone [phone] Care Team Providers Name Role Phone Delia Gifford RPAC Primary Care Physician Unavailable Payers Type Date Identification Numbers Payment Provider Subscriber Commercial Policy Number: [id number] Jovan Elias Oswald Ramirez PayID: [id number] [address] [address] [place] [address] Problems Date Description Provider Status Onset: 07/26/2011 Anxiety state PREM Orosco Active Onset: 01/15/2016 Chronic low back pain PREM Orosco Active Note: since teens Onset: 03/06/2018 Degenerative joint disease involving PREM Orosco Active multiple joints Note: Cervical spine Onset: 01/10/2012 Acute gastritis PREM Orosco Inactive Inactive: 08/16/2017 Family History Date Family [...] Form Strength Qnty SIG Indications Ordering Provider Hydrocodone-Ibu Active Tablets 7.5-200mg 60tabs One tab po M47.22 Conrad profen 018 q 8 hr prn [place], pain M.D. Betafood Active 1 tablet 3 Unknown (Nutritional 000 times Supplement) daily Atronex Active 1 tabe 3 Unknown (Nutritional 000 times Supplement) daily Hypothalamus Active 1 tab 3 Unknown PMG 000 times (Nutritional daily. Supplement) Orchex Active 1 tab 3 Unknown (Nutritional 000 times Suppliment) daily. Lactic Acid Active 1 tab 2 Unknown Yeast 000 times (Nutritional daily. Supplement) Latvian Black Active 1 tab 3 Unknown Radish 000 times (Nutritional daily. Suppliment) Multizyme Active 1 tab 2 Unknown (Nutritional 000 times Suppliment) daily. Cataplex Acp Active 1 tab 3 Unknown (Nutritional 000 times Supplement) daily. Calm Active 1 tab 3 Unknown (Nutritional 000 times Suppliment) daily. Calm Magensium Active 1 tab 2 Unknown (Nutritional 000 times Supplement) daily. No Active Hx Unknown Medications 017 - 017 Various Hx Unknown Nutritional 017 - Supplements 018 Azithromycin Hx Tablets 250mg 6tabs take 2 Stacy 016 - tabs on MD Christine day 1 and 016 take one tab days 2-5 Physical Hx low back Thomas Aceves Therapy Order 016 - Luis Antonio ybarra DO please 016 evaluate and treat. 2-3 times per week for 6 weeks No Active Hx Thomas Vitale. Medications 016 - Luis Antonio DO 016 Nystatin Hx Cream [id number] 30gm thin layer B37.3 Stacy 016 - /GM to MD Christine affected 017 area four times a day Meloxicam Hx Tablets 15mg 30tabs 1 tab by M46.1 Thomas Aceves 016 - mouth Luis Antonio DO every day 016 with food Multivitamin 0 Hx Tablets 1 by mouth Unknown Adult 000 every day Immunizations CPT Code Status Date Vaccine Lot # 74341 Given 08/01/2016 Influenza Virus Vaccine Split Virus Use For [id number] Individual 3Yr Older Q2038 Given 06/12/2015 Influenza Vaccine (Fluzone) Age 3 And Older 14971 Given 07/21/2014 flu vaccination 37463 Given 06/05/2013 flu vaccination 88700 Given 07/25/2012 flu vaccination 04021 Given 04/18/2011 flu vaccination Vital Signs Date Vital Result Comment 03/12/2018 BP Systolic Sitting Right Arm 102 mmHg BP Diastolic Sitting Right Arm 60 mmHg Heart Rate 88 /min Respiratory Rate 18 /min Height 60.75 inches 5'0.75" Weight 123.25 lb BMI (Body Mass Index) 23.5 kg/m2 BSA (Body Surface Area) 1.53 m2 [place] body weight in kilograms 47 O2 % BldC Oximetry 98 % ra 07/31/2017 BP Systolic Sitting Right Arm 88 mmHg BP Diastolic Sitting Right Arm 62 mmHg Heart Rate 75 /min Height 60.75 inches 5'0.75" Weight 123.00 lb BMI (Body Mass Index) 23.4 kg/m2 BSA (Body Surface Area) 1.53 m2 [place] body weight in kilograms 47 O2 % [...] kg/m2 BSA (Body Surface Area) 1.55 m2 [place] body weight in kilograms 45 07/30/2014 BP [...] 0 kU/L Chicken <0.08 Class 0 kU/L Chocolate/Eagle F052 <0.08 Class 0 kU/L Complement C3, Serum 103 mg/dL 90-180 8 Complement C4, Serum 24 mg/dL 9-36 9 Complement, Total (CH50) 56 U/mL 22-60 10 [place] <0.08 Class 0 kU/L 11 Egg (Whole) <0.08 Class 0 kU/L Eo% 0.0 % 0.0-6.6 Eos # 0.00 K/uL 0.0-0.5 F033 [place] <0.08 Class 0 kU/L Hematocrit 34.1 % Low 36.0-46.1 Hemoglobin 11.7 gm/dL 11.6-15.8 Immunoglobulin E,Total 3 IU/mL 0-100 Lymph # 2.09 K/uL 0.8-3.4 Lymph % 34.8 % 17.0-46.1 Mean Cell Volume 93.7 fl 80.9-99.0 Mean Corpuscular HGB 32.1 pg 25.9-32.7 Mean Corpuscular HGB Conc 34.3 g/dL 30.8-34.3 Mean Platelet Volume 10.0 fL 8.9-12.4 Milk (Cow) <0.08 Class 0 kU/L [place] # 0.48 K/uL 0.3-0.9 [place] % 8.0 % 4.3-13.2 Neut# 3.43 K/uL [...] for rectal and pharyngeal specimens. Performed at: [facility] [address] [id number] Sheet Metal Assembler: Nemo Taveras MD, Phone: [phone] Negative <1:80 Borderline 1:80 Positive >1:80 8 INFCE Result Units: mg/dL Adult 9 INFCE Result Units: mg/dL Adult 10 Performed at: [facility] [address] [id number] Sheet Metal Assembler: Nemo Taveras MD, Phone: [phone] Levels of Specific IgE Class Description of Class -- ----- <0.08 0 Negative 0.08 - 0.15 I 0.16 - 0.50 II Increasing 0.51 - 2.50 III levels 2.51 - 12.50 IV of 12.51 - 62.50 V Specific IgE 62.51 - >100.00 Antibody 12 Test(s) 307720-C610-CxH Chocolate/Eagle; 051711- L990-UrU Beef; 421919-G305 -IgE Chicken; 046060- Q560-PhS Egg, Whole were developed and had performance characteristics determined by [facility]. These tests have not been cleared or approved by the U.S. Food and Drug Administration. The FDA has determined that such clearance or approval is not necessary. These tests are used for clinical purposes. These should not be regarded as investigational or for research. Performed at: [address] [id number] Sheet Metal Assembler: Nemo Taveras MD, Phone: [phone] Performed at: [address] [id number] Sheet Metal Assembler: Veronica Gilbert MD, Phone: [phone] CYTOLOGY SCREENER - SUPERVISORY FORESTER @ 10/01 Screened by: MAYITO Ruiz(ASCP) PAP: FINAL REPORT SPECIMEN ADEQUACY: SPECIMEN SATISFACTORY FOR INTERPRETATION INTERPRETATION: NEGATIVE FOR INTRAEPITHELIAL LESION OR MALIGNANCY COMMENT: FUNGAL ORGANISMS MORPHOLOGICALLY CONSISTENT WITH GUNJAN SPP BENIGN CELLULAR CHANGES ASSOCIATED WITH INFLAMMATION THINPREP PREPARED PAP SLIDE # Prepared in the Cytology laboratory from the ThinPrep sample is 1 ThinPrep smear. PAP ACCESSI QUESTIONNAIRE 08/30 PERTINENT CLINICAL HISTORY FOR PAP (SUPERVISORY FORESTER) CYTOLOGY (Check all that apply) : ? N Post ? N Menopause? N LMP date: 04/26/12 Last Pap: at [facility]? N Abnormal Pap? If Yes, date: [...] normal population are 25-80 Test Performed by: [place] [address] Warehouse Shift Supervisor: Jacky Vora III, M.D. 15 A metabolite of Naproxen, O-desmethylnaproxen, has been shown to interfere with the Jendrassik-Jan method for measuring total bilirubin. Samples from [...] 114 . 21 ------- RUN DATE: 01/04/12 [facility] NMI LIVE PAGE 1 RUN TIME: 1432 Specimen Inquiry RUN USER: INTERFACE ----- Name: ANNALISE RUSS Status: DEP CLI Re01/01/12 Age/Sex: 41/F Unit#: [id number] [place] [facility] [place] 70 ----- SPEC #: [id number] BETTYE: 01/01/12-1354 STATUS: COMP REQ #: [id number] RECD: 01/02/12-[address]: King MELO,Tanisha Aceves [place] [facility] [place] 01/02/12- [address]: Brenda Arnold MDmarie SPDESC: WRIST,RIGH ORDERED: VIRUS CULT DERM ACT WKST: SO 01/04/12 #1 ----- Procedure Result Verified Site ----- > VIRUS CULTURE - DERMAL Final 01/04/12-1432 ML HERPES SIMPLEX RAPID PCR NEGATIVE VARICELLA BY RAPID PCR NEGATIVE Analyte Specific Reagent. This test was developed and its performance characteristics determined by Laboratory Medicine and Pathology, [facility], [facility]. This test has not been cleared or approved by the U.S. Food and Drug Administration. Test performed by: [facility] [address] [place], [place] [address] ----- - [facility] Permit #[id number] [address] [place] [address] ----- DEPARTMENT OF PATHOLOGY, [address] [place] [address] [facility] Permit #[id number] Dustin Salinas M.D. Director Ciara Vazquez M.D. Scale Clerk ----- 22 OPERATION/PROCEDURE Colonoscopy, EGD DIAGNOSIS: PART 1: "RANDOM COLON BIOPSIES": BENIGN, NONDYSPLASTIC AND NONINFLAMED COLONIC MUCOSA. ESSENTIALLY NORMAL DUODENAL MUCOSA. PART 2: "DUODENAL BIOPSIES": ESSENTIALLY NORMAL DUODENAL MUCOSA. PART 3: "STOMACH BIOPSIES": REACTIVE GASTROPATHY, DIFFERENTIAL DIAGNOSIS INCLUDES ALKALINE REFLUX, NSAID INJURY AND EARLY PEPTIC INJURY. NO HELICOBACTER SEEN WITH SPECIAL STAIN. WYS/clf INTERPRETATION COMMENT Part 1 has presumed duodenal [...] ----- VERONICA Piper MD 10/07/11 1338 ----- 23 ------- RUN DATE: 07/28/11 [facility] NMI LIVE PAGE 1 RUN TIME: 1058 Specimen Inquiry RUN USER: INTERFACE ----- Name: ANNALISE RUSS Accsony#: [id number] Status: REG REF Re07/26/11 Age/Sex: 40/F Unit#: [id number] Location: [facility] : 70 ----- SPEC #: [id number] BETTYE: 07/26/11 STATUS: COMP REQ #: [id number] RECD: 07/26/[address]: URINE ENTR: 07/26/[address]: [facility]: ORDERED: URINE C S QUERIES: SPECIMEN DESCRIPTION: URINE, RANDOM ACT WKST: UR 07/28/11 #1 ----- Procedure Result Verified Site ----- > URINE CULTURE SENSITIVI Final 07/28/11-1057 ML FINAL: NO GROWTH DAY 2 (<1,000 CFU/mL) ----- ML - [facility] Permit #[id number] [address] [place] [address] ----- DEPARTMENT OF PATHOLOGY, [address] [place] [address] [facility] Permit #[id number] Dustin Salinas M.D. Director Ciara Vazquez M.D. Scale Clerk ----- 24 Cytology Laboratory [address] [place] [address], [address] [place] [address] CYTOLOGY REPORT Name: Annalise Russ : 1970 (Age: 40) Sex: F Location: [facility] Soc. Sec. #: [id number] Date Collected: 04/18/2011 Billing #: [id number] Date Received: 04/19/2011 Physician(s): ZOYA ARNOLD MD Source of Specimen: ENDOCERVICAL/ECTOCERVICAL THIN PREP Clinical Information: Date of Last Menstrual Period: 03/26/11 Menstrual History: Regular Specimen Adequacy: SATISFACTORY FOR EVALUATION. NO ENDOCERVICAL/TRANSFORMATION ZONE. General Categorization: NEGATIVE FOR INTRAEPITHELIAL LESION OR MALIGNANCY. kfs Electronic Signature MAYITO Vela (ASCP) Reported: 04/22/2011 Also seen by:Lucy F. Ailyn, CT (ASCP ) Cytology Outreach [facility] ICD-9 Code(s) V72.31 Procedures Date CPT Code Description Status Comment 08/16/2017 Mammogram Completed Subsequent bx with Kaiden Jackson 03/01/2017 54316 Eye Exam New Patient Completed Comprehensive 12/24/2013 68500 Anesthesia, Hysteroscopy, Completed Hystersalpingography 10/06/2011 Colonoscopy Completed 10/01/2010 30858 Pressurized/Non-Pressurized Completed Inhalation Treatment,Acute Obstructio Encounters Type Date Location Provider CPT E/M Dx Office Visit 07/31/2017 Primary Care Office Delia Gifford, [address] Z01.419 1:00p [facility] Z12.4 Z12.31 Z80.3 Office Visit 05/30/2016 2:20p [place] [address] J06.9 Office Visit 01/15/2016 1:45p Primary Care Office Delia Gifford [facility] [address] B37.3 R51 M54.5 M46.1 Plan of Care Future Appointment(s):07/31/2018 1:00 pm - PREM Orosco at Primary [facility]7803/12/2018 [facility] Other spondylosis with radiculopathy, cervical regionNew Medication:Hydrocodone-Ibuprofen 7.5-200 mgComments:Discussed recent studies, medication use.Avoid cervical manipulation by chiropractic.Follow up:As needed.M79.602 Pain in left armAllComments:HCS interrogated. Reference #: [id number]
[2018-03-24 17:51] VITALS: BP 105/68
[2018-03-24] MEDS ORDERED: predniSONE TAB* 20 MG PO ONE (18:24)
--- NOTE | 2018-03-24 18:40 | UC ---
Allergic Reaction HPI - HPI Summary HPI Summary: Pt presents with c/o of pruritic rash, mild swelling to lips and "sores" inside mouth and lower lip. That began 3 days ago. Pt reports that she began new medication Lyrica on Monday, March 19 and also reports that she had a sprain childers on Monday as well and noticed that she had some "red spots" on upper chest. Pt states that she last took lyrica ~ 24 hours ago. Pt took two benadryl this afternoon at 12 pm with no noted improvement, and is currently on 4 mg medroldose pack. Pt has newly diagnosed herniated discs in neck and upper back. Pt is scheduled to have surgery for this on April 03, 2018 - History of Current Complaint Chief Complaint: JOVANIkin Stated Complaint: SKIN/ORAL COMPLAINT (POSSIBLE REACTION) Time Seen by Provider: 03/24/18 18:05 Hx Obtained From: Patient Hx Last Menstrual Period: 02/23/18 ?: No Onset/Duration: Gradual Onset, Lasting Days, Lasting Weeks Severity Initially: Mild Severity Currently: Moderate Pain Intensity: 4 Location: Diffuse Character: Swelling, Pruritus, Hives Alleviating Factor(s): Nothing Associated Signs And Symptoms: Positive: Rash - Related Hx Possible Reaction To: Medications, Other: - chemicals in spray childers - Allergies/Home Medications Allergies/Adverse Reactions: Allergies Allergy/AdvReac Type Severity Reaction Status Date / Time fluconazole Allergy See Comment Verified 03/24/18 17:39 lactose Allergy GI Upset Verified 03/24/18 17:39 Home Medications: Home Medications Hydrocodone/Ibuprofen [Hydrocodone-Ibuprofen 5-200 mg] 7.5 mg TID PRN 03/24/18 [ History Confirmed 03/24/18] diPHENhydraMINE PO* [Benadryl PO 50 MG CAP*] 1 tab ONCE 03/24/18 [History Confirmed 03/24/18] PMH/Surg Hx/FS Hx/Imm Hx Previously Healthy: Yes Other History Of: Negative For: HIV, Hepatitis B, Hepatitis C, Anticoagulant Therapy - Surgical History Surgical History: Yes Surgery Procedure, Year, and Place: c section, hernia repair - Family History Known Family History: Positive: None Negative: Cardiac Disease, Hypertension - Social History Occupation: Employed Full-time Lives: With Family Alcohol Use: None Substance Use Type: None Smoking Status (MU): Never Smoked Tobacco Have You Smoked in the Last Year: No - Immunization History Most Recent Influenza Vaccination: Fall 2014 Most Recent Tetanus Shot: UTD Vaccination Up to Date: Yes Review of Systems Constitutional: Negative Skin: Rash Eyes: Negative ENT: Negative Respiratory: Negative Cardiovascular: Negative Gastrointestinal: Negative Genitourinary: Negative Motor: Decreased ROM - neck, upper back Neurovascular: Negative Musculoskeletal: Arthralgia - neck, upper back. Pt has known herniated disc Neurological: Negative Psychological: Negative Is Patient Immunocompromised?: No All Other Systems Reviewed And Are Negative: Yes Physical Exam Triage Information Reviewed: Yes Appearance: Well-Appearing Vital Signs: Initial Vital Signs Temp 99.3 F 03/24/18 17:44 Pulse 83 03/24/18 17:44 Resp 16 03/24/18 17:44 BP 105/68 03/24/18 17:44 Pulse Ox 98 03/24/18 17:44 Vital Signs Reviewed: Yes Eye Exam: Normal ENT Exam: Other ENT: Positive: Other - lips mildly swollen, tiny fluid filled "bumps" inner lower lip Dental Exam: Normal Neck exam: Other - has pain with ROm due to herniated discs Respiratory Exam: Normal Cardiovascular Exam: Normal Musculoskeletal: Positive: ROM Limited @ - neck/upper back Neurological Exam: Normal Psychological Exam: Normal Skin: Positive: rashes - diffuse urticaria Allergic Reaction Course/Dx - Course Course Of Treatment: I discussed with the pt the need to discontinue lyrica and gabapentin, to use antihistamines daily until symptoms resolve. I also discussed with the pt the need to seek immediate medical attention if symptoms worsen. Pt verbalized understanding and agreed to plan of care. - Differential Dx/Diagnosis Differential Diagnosis/HQI/PQRI: Anaphylaxis, Local Allergic Reaction, Urticaria Provider Diagnoses: generalized allergic reaction Discharge - Sign-Out/Discharge Documenting (check all that apply): Patient Departure - Discharge Plan Condition: Stable Disposition: HOME Patient Education Materials: General Allergic Reaction (ED) Referrals: Delia Gifford PA [Primary Care Provider] - If Needed Additional Instructions: Please follow up with your PCP as soon as possible as well as Dr. James MD - Billing Disposition and Condition Condition: STABLE Disposition: Home
== END 2018-03-24 18:36 | disposition home or self-care (01) ==
LOC: UCCORT 17:16
DX: T78.40XA Allergy, unspecified, initial encounter (principal); R21 Rash and other nonspecific skin eruption; X58.XXXA Exposure to other specified factors, initial encounter
CPT/HCPCS: 99212; G0463; J7512

== ENCOUNTER 2018-04-03 07:30 | Inpatient (IN) | payer BC ==
[~2018-04-03 07:30] MED LIST: Buffered Lidocaine 0.9% SYRIN* 5 ML/SYR SYRINGE INTRADERM ONE; Dexamethasone IV* 4 MG/ML 1 ML (4 MG) IV SLOW PU ONE; Famotidine IV* 10 MG/ML 2 ML (20 mg) IV ONE
--- OUTSIDE RECORDS SUMMARY | 2018-04-03 12:22 | XMS REPORT ---
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 ETOH Use Denies alcohol use Smoking Patient has never smoked Recreational Drug Use Never Used Drugs Daily Caffeine Does Not Consume Caffeine Exercise Type/Frequency Exercises regularly Allergies, Adverse Reactions, Alerts Date Description Reaction Status Severity Comments 03/21/2018 Diflucan active Medications Medication Date Status Form Strength Qnty SIG Indications Ordering Provider Lyrica Active Capsules 75mg 1 by Unknown /0000 mouth twice a day Hydrocodone-Ibuprofe Active Tablets 7.5-200mg Unknown n /0000 Pantoprazole Sodium Active Tablets 20mg 1 by Unknown /0000 DR mouth every day Methylprednisolone Active TBPK 4mg take as Unknown /0000 directed Calm Magnesium Active 3/4 teasp Unknown /0000 bid Antronex Active 10 daily Unknown /0000 Hypothalamus PMG Active 2 daily Unknown /0000 HVS Metals Active 2 daily Unknown /0000 Orchex Active 7 daily Unknown /0000 Lactic Acid Yeast Active 4 daily Unknown /0000 Cameroonian Black Radish Active 7 daily Unknown /0000 Multizyme Active 2 daily Unknown /0000 Cataplex Acp Active 5 daily Unknown /0000 Vital Signs Date Vital Result Comment 03/21/2018 Height 60 inches 5'0" Weight 124.00 lb Heart Rate 77 /min BP Systolic Standing 110 mmHg BP Diastolic Standing 68 mmHg Pain Level 4 BMI (Body Mass Index) 24.2 kg/m2 Results Test Date Test Result H/L Range Note Inr/Protime 03/28/2018 Inr 0.83 0.77-1.02 Laboratory test finding 03/28/2018 Partial Thrombo 29.8 seconds 26.0- 36.3 Time PTT Urinalysis Profile 03/28/2018 Urine Color Straw Urine Appearance Clear Urine Specific [place] 1.004 Low 1.010-1.030 Urine pH 7.0 5-9 Urine Urobilinogen Negative Negative Urine Ketones Negative Negative Urine Protein Negative Negative Urine Leukocytes Negative Negative Urine Blood Negative Negative Urine Nitrite Negative Negative Urine Bilirubin Negative Negative Urine Glucose Negative Negative Type & Screen 03/28/2018 Patient Blood Type O Positive Antibody Screen NEGATIVE Basic Metabolic Panel 03/28/2018 Sodium 140 mmol/L 135-145 Potassium 4.0 mmol/L 3.5-5.0 Chloride 104 mmol/L 101-111 Co2 Carbon Dioxide 30 mmol/L 22-32 Anion Gap 6 mmol/L 2-11 Glucose 90 mg/dL 70-100 Blood Urea Nitrogen 10 mg/dL 6-24 Creatinine 0.82 mg/dL 0.51-0.95 BUN/Creatinine Ratio 12.2 8-20 Calcium 9.2 mg/dL 8.6-10.3 Egfr Non- 74.7 >60 Egfr 90.4 >60 1 Laboratory test finding 03/28/2018 TSH (Thyroid Stim Horm) 2.18 mcIU/mL 0.34-5.60 CBC Auto Diff 03/28/2018 White Blood Count 6.1 10^3/uL 3.5-10.8 Red Blood Count 4.49 10^6/uL 4.00-5.40 Hemoglobin 14.5 g/dL 12.0-16.0 Hematocrit 42 % 35-47 Mean Corpuscular Volume 94 fL 80-97 Mean Corpuscular Hemoglobin 32 pg High 27-31 Mean Corpuscular HGB Conc 34 g/dL 31-36 Red Cell Distribution Width 13 % 10.5-15 Platelet Count 217 10^3/uL 150-450 Mean Platelet Volume 6.7 um3 Low 7.4-10.4 Abs Neutrophils 3.3 10^3/uL 1.5-7.7 Abs Lymphocytes 2.1 10^3/uL 1.0-4.8 Abs Monocytes 0.5 10^3/uL 0-0.8 Abs Eosinophils 0.2 10^3/uL 0-0.6 Abs Basophils 0 10^3/uL 0-0.2 Abs Nucleated RBC 0 10^3/uL Granulocyte % 54.0 % 38-83 Lymphocyte % 35.1 % 25-47 Monocyte % 7.7 % High 0-7 Eosinophil % 2.6 % 0-6 Basophil % 0.6 % 0-2 Nucleated Red Blood Cells % 0.1 1 Because ethnic data is not always readily [...] Kidney damage with mild decrease in GFR 60-89 3 Moderate decrease in GFR 30-59 4 Severe decrease in GFR 15-29 5 Kidney failure <15 (or dialysis) Procedures Description No Information Plan of Care Future Appointment(s):04/03/2018 7:30 am - Nacho Ramirez MD at [facility]03/21/2018 - Nacho Ramirez, MDM50.122 Cervical disc disorder at C5-C6 level with radiculopathyFollow up:RV one week postop
--- OUTSIDE RECORDS SUMMARY | 2018-04-03 12:22 | XMS REPORT ---
:1970 External Reference #:[id number] Author Organization [facility] Address [address], [address] [place] [address] Phone [phone] Care Team Providers Name Role Phone Delia Gifford RPAUvaldo Care Team Information Processor Grain Unavailable Delia Gifford RPAC Primary Care Physician Unavailable Payers Type Date Identification Numbers Payment Provider Subscriber Commercial Policy Number: [id number] Edison Elias Oswald Ramirez PayID: [id number] [address] [address] [place] [address] Problems Date Description Provider Status Onset: 07/26/2011 Anxiety state Delia Gifford RPAC Active Onset: 01/15/2016 Chronic low back pain Delia Gifford RPAC Active Note: since teens Onset: 03/06/2018 Degenerative joint disease involving Delia Gifford RPAC Active multiple joints Note: Cervical spine Onset: 03/12/2018 Pain in left arm Delia Gifford RPAC Active Onset: 03/12/2018 Cervical spondylosis without Delia [place], RPAC Active myelopathy Onset: 01/10/2012 Acute gastritis Delia Gifford, RPAC Inactive Inactive: 08/16/2017 Family History Date [...] Urticaria active 03/01/2017 Antibiotics active Yeast Infections 03/29/2018 Lyrica active rash 01/15/2016 NKDA inactive Medications Medication Date Status Form Strength Qnty SIG Indications Ordering Provider Inositol 03/29 Active Tablet 9 tablets daily [place], MTaoDTao Oxycodone-Acetamin 03/27 Active Tablets 5-325mg 60tab 1-2 tabs by M47.22 Conrad s mouth every [place], 6 hours as M.D. needed for severe pain Betafood Active 1 tablet 3 Unknown (Nutritional /0000 times daily Supplement) Orchex 00 Active 1 tab 7 Unknown (Nutritional /0000 times Suppliment) daily. Lactic Acid Yeast Active 1 tab Unknown (Nutritional /0000 3times Supplement) daily. Multizyme Active 1 tab 3 Unknown (Nutritional /0000 times Suppliment) daily. Cataplex Acp 00 Active 1 tab 8 Unknown (Nutritional /0000 times Supplement) daily. Hepatia 00 Active Liquid 100 drops Unknown /0000 daily Albaplex 00/00 Active Tablet 4 tablets Unknown /0000 daily. HVS Metals 00 Active 1 cap full Unknown /0000 Cranberry Complex 0000 Active 2 tablets Unknown /0000 daily Turmerix Forte 0000 Active Tablet 4 tablets Unknown /0000 daily Cataplex F Pearls 00 Active Capsules 1 capsules Unknown /0000 daily Gynazole-1 03/22 Hx Cream 2% 5gm 1 applicatorf Cl, - ul M.D. 03/29 intravagina lly q hs X 1 Lyrica 03/19 Hx Capsules 75mg 90cap one cap by M47.22 s mouth three [place], - times a day M.D. 03/26 as needed neck pain . Methylprednisolone 03/19 Hx TBPK 4mg 1unit Dose as M79.602 s directed Cl, - M.D. 03/29 Hydrocodone-Ibupro 03/12 Hx Tablets 7.5-200mg 60tab One tab po M47.22 Conrad s q 8 hr prn Cl, Remi pain M.D. 03/27 No Active 07/31 Hx Unknown Medications /2016 - 07/31 Various 01/19 Hx Unknown Nutritional Supplements - 03/12 Azithromycin 05/30 Hx Tablets 250mg 6tabs take 2 tabs Stacy on day 1 Christine, - and take MD 08/01 one tab days 2-5 Physical Therapy 02/28 Hx low back Thomas Aceves Order pain, Luis Antonio DO - please 08/01 evaluate and treat. 2-3 times per week for 6 weeks No Active 01/14 Hx Thomas E. Medications Luis Antonio DO - 01/14 Nystatin 01/14 Hx Cream [id number] 30gm thin layer B37.3 t/GM to affected Christine, - area four MD 03/01 times a day /2016 Meloxicam 01/14 Hx Tablets 15mg 30tab 1 tab by M46.1 Thomas E. /2015 s mouth every Luis Antonio DO - day with 05/30 Multivitamin Adult Hx Tablets 1 by mouth Unknown /0000 every day Atronex Hx 1 tabe 3 Unknown (Nutritional /0000 times daily Supplement) Hypothalamus PMG Hx 1 tab 3 Unknown (Nutritional /0000 times Supplement) - daily. 03/29 Djiboutian Black 00 Hx 1 tab 3 Unknown Radish /0000 times (Nutritional - daily. Suppliment) 03/29 Calm (Nutritional 0000 Hx 1 tab 3 Unknown Suppliment) /0000 times - daily. 03/29 Calm Magensium 00 Hx 1 tab 2 Unknown (Nutritional /0000 times Supplement) - daily. 03/29 Gabapentin 00 Hx Capsules 300mg 120ca 1 capsule M47.22 Conrad /0000 ps by mouth [place], - every 6 hr. M.D. 03/19 Methylprednisolone 00 Hx Tablets 4mg 1 tab by Unknown /0000 mouth every - day after 03/19 Immunizations CPT Code Status Date Vaccine Lot # 12066 Given 08/01/2016 Influenza Virus Vaccine Split Virus Use For [id number] Individual 3Yr Older Q2038 Given 06/12/2015 Influenza Vaccine (Fluzone) Age 3 And Older 53755 Given 07/21/2014 flu vaccination 36067 Given 06/05/2013 flu vaccination 24859 Given 07/25/2012 flu vaccination 34524 Given 04/18/2011 flu vaccination Vital Signs Date Vital Result Comment 03/29/2018 BP Systolic Sitting Right Arm 118 mmHg BP Diastolic Sitting Right Arm 62 mmHg Body Temperature 97.0 F Heart Rate 73 /min reg Respiratory Rate 18 /min O2 % BldC Oximetry 98 % ra 03/19/2018 BP Systolic Sitting Right Arm 108 mmHg BP Diastolic Sitting Right Arm 62 mmHg Body Temperature 98.7 F Heart Rate 75 /min reg Respiratory Rate 24 /min Height 60.75 inches 5'0.75" Weight 125.00 lb BMI (Body Mass Index) 23.8 kg/m2 BSA (Body Surface Area) 1.54 m2 [place] body weight in kilograms 47 O2 % BldC Oximetry 98 % ra 03/12/2018 BP Systolic Sitting Right Arm 102 mmHg BP Diastolic Sitting Right Arm 60 mmHg Heart Rate 88 /min Respiratory Rate 18 /min Height 60.75 inches 5'0.75" Weight 123.25 lb BMI (Body Mass Index) 23.5 kg/m2 BSA (Body Surface Area) 1.53 m2 [place] body weight in kilograms 47 O2 % BldC Oximetry 98 % ra 07/31/2017 BP Systolic Sitting Right Arm 88 mmHg BP Diastolic Sitting Right Arm 62 mmHg Heart Rate 75 /min Height 60.75 inches 5'0.75" Weight 123.00 lb BMI (Body Mass Index) 23.4 kg/m2 BSA (Body Surface Area) 1.53 m2 [place] body weight in kilograms 47 O2 % [...] kg/m2 BSA (Body Surface Area) 1.55 m2 [place] body weight in kilograms 45 07/30/2014 BP [...] 0 kU/L Chicken <0.08 Class 0 kU/L Chocolate/Pomeroy F052 <0.08 Class 0 kU/L Complement C3, Serum 103 mg/dL 90-180 8 Complement C4, Serum 24 mg/dL 9-36 9 Complement, Total (CH50) 56 U/mL 22-60 10 [place] <0.08 Class 0 kU/L 11 Egg (Whole) <0.08 Class 0 kU/L Eo% 0.0 % 0.0-6.6 Eos # 0.00 K/uL 0.0-0.5 F033 [place] <0.08 Class 0 kU/L Hematocrit 34.1 % Low 36.0-46.1 Hemoglobin 11.7 gm/dL 11.6-15.8 Immunoglobulin E,Total 3 IU/mL 0-100 Lymph # 2.09 K/uL 0.8-3.4 Lymph % 34.8 % 17.0-46.1 Mean Cell Volume 93.7 fl 80.9-99.0 Mean Corpuscular HGB 32.1 pg 25.9-32.7 Mean Corpuscular HGB Conc 34.3 g/dL 30.8-34.3 Mean Platelet Volume 10.0 fL 8.9-12.4 Milk (Cow) <0.08 Class 0 kU/L [place] # 0.48 K/uL 0.3-0.9 [place] % 8.0 % 4.3-13.2 Neut# 3.43 K/uL [...] for rectal and pharyngeal specimens. Performed at: RN - [facility] [address] [id number] Music Professor: Nemo Taveras MD, Phone: [phone] Negative <1:80 Borderline 1:80 Positive >1:80 8 INFCE Result Units: mg/dL Adult 9 INFCE Result Units: mg/dL Adult 10 Performed at: [address] [id number] Music Professor: Nemo Taveras MD, Phone: [phone] Levels of Specific IgE Class Description of Class -- ----- <0.08 0 Negative 0.08 - 0.15 I 0.16 - 0.50 II Increasing 0.51 - 2.50 III levels 2.51 - 12.50 IV of 12.51 - 62.50 V Specific IgE 62.51 - >100.00 Antibody 12 Test(s) 314898-T678-QbA Chocolate/Pomeroy; 747932- A477-ErD Beef; 808242-E221 -IgE Chicken; 541070- C333-OqW Egg, Whole were developed and had performance characteristics determined by [facility]. These tests have not been cleared or approved by the U.S. Food and Drug Administration. The FDA has determined that such clearance or approval is not necessary. These tests are used for clinical purposes. These should not be regarded as investigational or for research. Performed at: [address] [id number] Music Professor: Nemo Taveras MD, Phone: [phone] Performed at: [address] [id number] Music Professor: Veronica Gilbert MD, Phone: [phone] CYTOLOGY SCREENER - TRUCK ASSEMBLER @ 10/01 Screened by: MAYITO Ruiz(ASCP) PAP: FINAL REPORT SPECIMEN ADEQUACY: SPECIMEN SATISFACTORY FOR INTERPRETATION INTERPRETATION: NEGATIVE FOR INTRAEPITHELIAL LESION OR MALIGNANCY COMMENT: FUNGAL ORGANISMS MORPHOLOGICALLY CONSISTENT WITH GUNJAN SPP BENIGN CELLULAR CHANGES ASSOCIATED WITH INFLAMMATION THINPREP PREPARED PAP SLIDE # Prepared in the Cytology laboratory from the ThinPrep sample is 1 ThinPrep smear. PAP ACCESSI QUESTIONNAIRE 08/30 PERTINENT CLINICAL HISTORY FOR PAP (TRUCK ASSEMBLER) CYTOLOGY (Check all that apply) : ? N Post ? N Menopause? N LMP date: 04/26/12 Last Pap: at [facility]? N Abnormal Pap? If Yes, date: [...] normal population are 25-80 Test Performed by: [place] [address] Manager Intensive Care Unit: Jacky Vora III, M.D. 15 A metabolite of Naproxen, O-desmethylnaproxen, has been shown to interfere with the Jenbriana-Jan method for measuring total bilirubin. Samples from [...] 114 . 21 ------- RUN DATE: 01/04/12 [facility] NMI LIVE PAGE 1 RUN TIME: 1432 Specimen Inquiry RUN USER: INTERFACE ----- Name: ANNALISE RUSS Status: DEP CLI Re01/01/12 Age/Sex: 41/F Unit#: [id number] [place] [facility] [place] 70 ----- SPEC #: [id number] BETTYE: 01/01/12-7026 STATUS: DIAMANTE REQ #: [id number] RECD: 01/02/12-[address]: Tanisha Malik MD SOURCE: MISC ENTR: 01/02/12- [address]: Zoya Arnold MDC: TREY,COLEEN ORDERED: VIRUS CULT DERM ACT WKST: SO 01/04/12 #1 ----- Procedure Result Verified Site ----- > VIRUS CULTURE - DERMAL Final 01/04/12-1432 ML HERPES SIMPLEX RAPID PCR NEGATIVE VARICELLA BY RAPID PCR NEGATIVE Analyte Specific Reagent. This test was developed and its performance characteristics determined by Laboratory Medicine and Pathology, [facility], [facility]. This test has not been cleared or approved by the U.S. Food and Drug Administration. Test performed by: [employer] [address] [place] [address] ----- - [facility] Permit #[id number] [facility] [address] [place] [address] ----- DEPARTMENT OF PATHOLOGY, [facility] [employer] [place], [place] [address] [place] Permit #[id number] Dustin Salinas M.D. Director Ciara Vazquez M.D. Information Technology Audit Manager ----- 22 OPERATION/PROCEDURE Colonoscopy, EGD DIAGNOSIS: PART [...] 1338 ----- 23 ------- RUN DATE: 07/28/11 [facility] NMI LIVE PAGE 1 RUN TIME: 1058 Specimen Inquiry RUN USER: INTERFACE ----- Name: ANNALISE RUSS Status: REG REF Re07/26/11 Age/Sex: 40/F Unit#: [id number] Location: [facility] : 70 ----- SPEC #: [id number] BETTYE: 07/26/11 STATUS: DIAMANTE REQ #: [id number] RECD: 07/26/[address] [facility] [address]: [facility] S[facility]: URINE ENTR: 07/26/[address]: [facility]: ORDERED: URINE C S QUERIES: SPECIMEN DESCRIPTION: URINE, RANDOM ACT WKST: UR 07/28/11 #1 ----- Procedure Result Verified Site ----- > URINE CULTURE SENSITIVI Final 07/28/11-1057 ML FINAL: NO GROWTH DAY 2 (<1,000 CFU/mL) ----- [facility] Permit #[id number] [address] [place] [address] ----- DEPARTMENT OF PATHOLOGY, [address] [place] [address] [facility] Permit #[id number] Dustin Salinas M.D. Director Ciara Vazquez M.D. Information Technology Audit Manager ----- 24 Cytology Laboratory [address] [place] [address], [facility] [address] [place] [address] CYTOLOGY REPORT Name: Annalise Russ : 1970 (Age: 40) Sex: F Location: [facility] Soc. Sec. #: [id number] Date Collected: 04/18/2011 Billing #: [id number] Date Received: 04/19/2011 Physician(s): ZOYA ARNOLD MD Source of Specimen: ENDOCERVICAL/ECTOCERVICAL THIN PREP Clinical Information: Date of Last Menstrual Period: 03/26/11 Menstrual History: Regular Specimen Adequacy: SATISFACTORY FOR EVALUATION. NO ENDOCERVICAL/TRANSFORMATION ZONE. General Categorization: NEGATIVE FOR INTRAEPITHELIAL LESION OR MALIGNANCY. kfs Electronic Signature MAYITO Vela (ASCP) Reported: 04/22/2011 Also seen by:MAYITO Vela (ASCP ) Cytology Outreach [facility] ICD-9 Code(s) V72.31 Procedures Date CPT Code Description Status Comment 08/16/2017 Mammogram Completed Subsequent bx with Kaiden Jackson 03/01/2017 09139 Eye Exam New Patient Completed Comprehensive 12/24/2013 29888 Anesthesia, Hysteroscopy, Completed Hystersalpingography 10/06/2011 Colonoscopy Completed 10/01/2010 42865 Pressurized/Non-Pressurized Completed Inhalation Treatment,Acute Obstructio Encounters Type Date Location Provider CPT E/M Dx Office Visit 03/19/2018 1:30p Primary Care Office Delia Gifford 56802 M47.22 [facility] M79.602 Office Visit 03/12/2018 1:30p Primary Care Office Delia Gifford 81725 M47.22 [facility] M79.602 Office Visit 07/31/2017 1:00p Primary Care Office Delia Gifford 26090 Z01.419 [facility] Z12.4 Z12.31 Z80.3 Office Visit 05/30/2016 2:20p [place] [address] J06.9 Office Visit 01/15/2016 1:45p Primary Care Office Delia Gifford [facility] [address] B37.3 R51 M54.5 M46.1 Plan of Care Future Appointment(s):07/31/2018 1:00 pm - [facility] Lyfabr6903/29/2018 - Delia Gifford RPACZ01.818 Encounter for other preprocedural lpvvwjayafkH95.122 Cervical disc disorder at C5-C6 level with radiculopathyComments:Medically clear for proposed procedure.M79.602 Pain in left armAllNew Medication:Inositol
--- OUTSIDE RECORDS SUMMARY | 2018-04-03 12:22 | XMS REPORT ---
:1970 External Reference #:[id number] Author Organization [facility] Address [address], [address] [place] [address] Phone [phone] Care Team Providers Name Role Phone Delia Gifford RPAUvaldo Care Team Information Dry Box Tender Unavailable Delia Gifford RPAC Primary Care Physician Unavailable Payers Type Date Identification Numbers Payment Provider Subscriber Commercial Policy Number: [id number] Edison Elias Oswald Ramirez PayID: [id number] [address] [address] [place] [address] Problems Date Description Provider Status Onset: 07/26/2011 Anxiety state Delia Gifford RPAC Active Onset: 01/15/2016 Chronic low back pain Delia Gifford RPAC Active Note: since teens Onset: 03/06/2018 Degenerative joint disease involving Delia Gifford RPAC Active multiple joints Note: Cervical spine Onset: 03/12/2018 Pain in left arm Delia Gifford RPAC Active Onset: 03/12/2018 Cervical spondylosis without Delia Issue, RPAC Active myelopathy Onset: 01/10/2012 Acute gastritis [...] DO - 01/14 Nystatin 01/14 Hx Cream 056183Vgs 30gm thin layer B37.3 t/GM to affected [...] (Nutritional /0000 times Supplement) - daily. 03/29 Togolese Black 00 Hx 1 tab 3 Unknown [...] CPT Code Status Date Vaccine Lot # 55349 Given 08/01/2016 Influenza Virus Vaccine Split Virus Use For [id number] Individual 3Yr Older Q2038 Given 06/12/2015 Influenza Vaccine (Fluzone) Age 3 And Older 19700 Given 07/21/2014 flu vaccination 75274 Given 06/05/2013 flu vaccination 84262 Given 07/25/2012 flu vaccination 49515 Given 04/18/2011 flu vaccination Vital Signs Date [...] kg/m2 BSA (Body Surface Area) 1.54 m2 [place] body weight in kilograms 47 O2 % BldC Oximetry 98 % ra 03/12/2018 BP Systolic Sitting Right Arm 102 mmHg BP Diastolic Sitting Right Arm 60 mmHg Heart Rate 88 /min Respiratory Rate 18 /min Height 60.75 inches 5'0.75" Weight 123.25 lb BMI (Body Mass Index) 23.5 kg/m2 BSA (Body Surface Area) 1.53 m2 [place] body weight in kilograms 47 O2 % BldC Oximetry 98 % ra 07/31/2017 BP Systolic Sitting Right Arm 88 mmHg BP Diastolic Sitting Right Arm 62 mmHg Heart Rate 75 /min Height 60.75 inches 5'0.75" Weight 123.00 lb BMI (Body Mass Index) 23.4 kg/m2 BSA (Body Surface Area) 1.53 m2 [place] body weight in kilograms 47 O2 % [...] kg/m2 BSA (Body Surface Area) 1.55 m2 [place] body weight in kilograms 45 07/30/2014 BP [...] 0 kU/L Chicken <0.08 Class 0 kU/L Chocolate/Pomerene F052 <0.08 Class 0 kU/L Complement C3, Serum 103 mg/dL 90-180 8 Complement C4, Serum 24 mg/dL 9-36 9 Complement, Total (CH50) 56 U/mL 22-60 10 [place] <0.08 Class 0 kU/L 11 Egg (Whole) <0.08 Class 0 kU/L Eo% 0.0 % 0.0-6.6 Eos # 0.00 K/uL 0.0-0.5 F033 [place] <0.08 Class 0 kU/L Hematocrit 34.1 % Low 36.0-46.1 Hemoglobin 11.7 gm/dL 11.6-15.8 Immunoglobulin E,Total 3 IU/mL 0-100 Lymph # 2.09 K/uL 0.8-3.4 Lymph % 34.8 % 17.0-46.1 Mean Cell Volume 93.7 fl 80.9-99.0 Mean Corpuscular HGB 32.1 pg 25.9-32.7 Mean Corpuscular HGB Conc 34.3 g/dL 30.8-34.3 Mean Platelet Volume 10.0 fL 8.9-12.4 Milk (Cow) <0.08 Class 0 kU/L [place] # 0.48 K/uL 0.3-0.9 [place] % 8.0 % 4.3-13.2 Neut# 3.43 K/uL [...] pharyngeal specimens. Performed at: RN - [facility] [address] [id number] Flight Inspector: Nemo Taveras MD, Phone: [phone] Negative <1:80 Borderline 1:80 Positive >1:80 8 INFCE Result Units: mg/dL Adult 9 INFCE Result Units: mg/dL Adult 10 Performed at: [address] [id number] Flight Inspector: Nemo Taveras MD, Phone: [phone] Levels of Specific IgE Class Description of Class -- ----- <0.08 0 Negative 0.08 - 0.15 I 0.16 - 0.50 II Increasing 0.51 - 2.50 III levels 2.51 - 12.50 IV of 12.51 - 62.50 V Specific IgE 62.51 - >100.00 Antibody 12 Test(s) 130746-J542-LfF Chocolate/Pomerene; 079705- A026-HlR Beef; 151567-I830 -IgE Chicken; 198503- U396-AdX Egg, Whole were developed and had performance characteristics determined by [facility]. These tests have not been cleared or approved by the U.S. Food and Drug Administration. The FDA has determined that such clearance or approval is not necessary. These tests are used for clinical purposes. These should not be regarded as investigational or for research. Performed at: [address] [id number] Flight Inspector: Nemo Taveras MD, Phone: [phone] Performed at: [address] [id number] Flight Inspector: Veronica Gilbert MD, Phone: [phone] CYTOLOGY SCREENER - RADIATION / CHEMISTRY TECHNICIAN @ 10/01 Screened by: MAYITO Ruiz(ASCP) PAP: FINAL REPORT SPECIMEN ADEQUACY: SPECIMEN SATISFACTORY FOR INTERPRETATION INTERPRETATION: NEGATIVE FOR INTRAEPITHELIAL LESION OR MALIGNANCY COMMENT: FUNGAL ORGANISMS MORPHOLOGICALLY CONSISTENT WITH GUNJAN SPP BENIGN CELLULAR CHANGES ASSOCIATED WITH INFLAMMATION THINPREP PREPARED PAP SLIDE # Prepared in the Cytology laboratory from the ThinPrep sample is 1 ThinPrep smear. PAP ACCESSI QUESTIONNAIRE 08/30 PERTINENT CLINICAL HISTORY FOR PAP (RADIATION / CHEMISTRY TECHNICIAN) CYTOLOGY (Check all that apply) : ? N Post ? N Menopause? N LMP date: 04/26/12 Last Pap: at [facility]? N Abnormal Pap? If Yes, date: If [...] normal population are 25-80 Test Performed by: [place] [address] Telegraph Repeater Technician: Jacky Vora III, M.D. 15 A metabolite [...] 114 . 21 ------- RUN DATE: 01/04/12 [facility] NMI LIVE PAGE 1 RUN TIME: 1432 Specimen Inquiry RUN USER: INTERFACE ----- Name: ANNALISE RUSS Status: DEP CLI Re01/01/12 Age/Sex: 41/F Unit#: [id number] Location: [facility] : 70 ----- SPEC #: [id number] BETTYE: 01/01/12-4461 STATUS: DIAMANTE REQ #: [id number] RECD: 01/02/12-[address]: Tanisha Malik MD [...] determined by Laboratory Medicine and Pathology, [facility]. This test has not been cleared or approved by the U.S. Food and Drug Administration. Test performed by: [employer] [address] [place] [address] ----- - [facility] Permit #[id number] [facility] [employer] [place] [address] ----- DEPARTMENT OF PATHOLOGY, [facility] [employer] [place], [place] [address] [place] Permit #[id number] Dustin Salinas M.D. Director Ciara Vazquez M.D. Side Laster ----- 22 OPERATION/PROCEDURE Colonoscopy, EGD DIAGNOSIS: PART [...] 1338 ----- 23 ------- RUN DATE: 07/28/11 [facility] NMI LIVE PAGE 1 RUN TIME: 1058 Specimen Inquiry RUN USER: INTERFACE ----- Name: ANNALISE RUSS Status: REG REF Re07/26/11 Age/Sex: 40/F Unit#: [id number] Location: [facility] : 70 ----- SPEC #: [id number] BETTYE: 07/26/11 STATUS: DIAMANTE REQ #: [id number] RECD: 07/26/11 [facility] DR[facility] SOURCE: URINE ENTR: 07/26/[address]: [facility]: ORDERED: URINE C S QUERIES: SPECIMEN DESCRIPTION: URINE, RANDOM ACT WKST: UR 07/28/11 #1 ----- Procedure Result Verified Site ----- > URINE CULTURE SENSITIVI Final 07/28/11-1057 ML FINAL: NO GROWTH DAY 2 (<1,000 CFU/mL) ----- [facility] Permit #[id number] [address] [place] [address] ----- DEPARTMENT OF PATHOLOGY, [address] [place] [address] [facility] Permit #[id number] Dustin Salinas M.D. Director Ciara Vazquez M.D. Side Laster ----- 24 Cytology Laboratory [address] [place] [address], [facility] [address] [place] [address] CYTOLOGY REPORT Name: Annalise Russ : 1970 (Age: 40) Sex: F Location: [facility] Soc. Sec. #: [id number] Date Collected: 04/18/2011 Billing #: [id number] Date Received: 04/19/2011 Physician(s): ZOYA ARNOLD MD Source of Specimen: ENDOCERVICAL/ECTOCERVICAL THIN PREP Clinical Information: Date of Last Menstrual Period: 03/26/11 Menstrual History: Regular Specimen Adequacy: SATISFACTORY FOR EVALUATION. NO ENDOCERVICAL/TRANSFORMATION ZONE. General Categorization: NEGATIVE FOR INTRAEPITHELIAL LESION OR MALIGNANCY. kfs Electronic Signature MAYITO Vela (ASCP) Reported: 04/22/2011 Also seen by:MAYITO Vela (ASCP ) Cytology Outreach [facility] ICD-9 Code(s) V72.31 Procedures Date CPT Code Description Status Comment 08/16/2017 Mammogram Completed Subsequent bx with Kaiden Jackson 03/01/2017 55997 Eye Exam New Patient Completed Comprehensive 12/24/2013 06791 Anesthesia, Hysteroscopy, Completed Hystersalpingography 10/06/2011 Colonoscopy Completed 10/01/2010 63822 Pressurized/Non-Pressurized Completed Inhalation Treatment,Acute Obstructio Encounters Type Date Location Provider CPT E/M Dx Office Visit 03/19/2018 1:30p Primary Care Office Delia Gifford 81309 M47.22 [facility] M79.602 Office Visit 03/12/2018 1:30p Primary Care Office Delia Gifford 45371 M47.22 [facility] M79.602 Office Visit 07/31/2017 1:00p Primary Care Office Delia Gifford 16283 Z01.419 [facility] Z12.4 Z12.31 Z80.3 Office Visit 05/30/2016 2:20p [place] [address] J06.9 Office Visit 01/15/2016 1:45p Primary Care Office Delia Gifford [facility] [address] B37.3 R51 M54.5 M46.1 Plan of Care Future Appointment(s):07/31/2018 1:00 pm - [facility] Sduuhv2103/29/2018 - Delia Gifford RPACZ01.818 Encounter for other preprocedural yncrtcstjjkW20.122 Cervical disc disorder at C5-C6 level with radiculopathyComments:Medically clear for proposed procedure.M79.602 Pain in left armAllNew Medication:Inositol
[2018-04-03] MEDS ORDERED: Famotidine IV* 10 MG/ML 2 ML (20 mg) ONE (13:02)
[2018-04-03] MEDS ORDERED: Dexamethasone IV* 4 MG/ML 1 ML (4 MG) ONE (13:03)
[2018-04-03] MEDS ORDERED: Vancomycin(*) 1,000 MG in NS 0.9% 250 ML* 250 ML IVPB ONE (13:30)
[2018-04-03] MEDS ORDERED: Lidocaine 1% MPF wEPI 200,000* 30 ML SDV ONE (13:51)
[2018-04-03] MEDS ORDERED: Thrombin 5,000 UNITS* 1 APPLIC KIT - topical use - TOPICAL ONE (13:51)
[2018-04-03] MEDS ORDERED: Bacitracin IV* 50,000 UNITS INJ ONE (13:52)
[2018-04-03] MEDS ORDERED: Midazolam* 1 MG/ML 5 ML VIAL (5 MG) ONE (14:49)
[2018-04-03] MEDS ORDERED: fentaNYL* 50 MCG/ML 5 ML VIAL (250 MCG VIAL) ONE (14:50)
[2018-04-03] MEDS ORDERED: Ondansetron INJ* 2 MG/ML VIAL ONE (14:50)
[2018-04-03] MEDS ORDERED: Atracurium* 10 MG/ML 10 ML VIAL ONE (14:50)
[2018-04-03] MEDS ORDERED: Propofol* 10 MG/ML 20 ML BTL IV PUSH ONE (14:50)
[2018-04-03] MEDS ORDERED: Lidocaine 2% PF * 5 ML VIAL ONE (14:50)
[2018-04-03] MEDS ORDERED: Naloxone* 0.4 MG/ML 1 ML VIAL IV PRN (15:39)
[2018-04-03] MEDS ORDERED: Scopolamine 1.5 mg* PATCH TRANSDERM PRN (15:39)
[2018-04-03] MEDS ORDERED: Ondansetron INJ* 2 MG/ML VIAL IV PRN ×2 (15:39→17:46)
[2018-04-03] MEDS ORDERED: DiMENhydriNATE IV* 50 MG/ML VIAL IV PUSH PRN (15:39)
[2018-04-03] MEDS ORDERED: fentaNYL* 50 MCG/ML 2 ML VIAL (100 MCG VIAL) ONE ×3 (16:07→19:06)
[2018-04-03] MEDS ORDERED: Acetaminophen TAB* 325 MG PO PRN (17:46)
[2018-04-03] MEDS ORDERED: Magnesium Hydroxide LIQ* 30 ML UDC PO PRN (17:46)
[2018-04-03] MEDS: fentaNYL* 50 MCG/ML 2 ML VIAL (100 MCG VIAL) IV PRN ×3 (18:16→19:27)
[2018-04-03] MEDS ORDERED: HYDROmorphone INJ* 0.5 MG/0.5 ML SYRINGE ONE ×2 (18:40→19:06)
[2018-04-03] MEDS ORDERED: oxyCODONE/Acetamin 5/325 MG* TAB ONE ×2 (18:40→20:06)
[2018-04-03] MEDS: oxyCODONE/Acetamin 5/325 MG* TAB PO PRN ×2 (18:42→20:08)
[2018-04-03] MEDS: HYDROmorphone INJ* 0.5 MG/0.5 ML SYRINGE IV PRN ×5 (18:52→19:20)
[2018-04-03] MEDS: HYDROcodone/ACETAMIN 5-325 MG* 1 TAB PO PRN (21:01)
[2018-04-03] MEDS: Morphine INJ* 2 MG/ML 1 ML SYRINGE (TWO MG - NEW SYRINGE VERSION) IV PRN (22:16)
[2018-04-03] MEDS: Benzocaine/Menthol LOZ* 1 LOZENGE MT PRN (22:16)
[2018-04-04] MEDS: Morphine INJ* 2 MG/ML 1 ML SYRINGE (TWO MG - NEW SYRINGE VERSION) IV PRN ×3 (00:38→05:57)
--- NOTE | 2018-04-04 02:25 | OP ---
OPERATIVE REPORT: DATE OF OPERATION: 04/03/18 - Inpatient, SSU 348-01 DATE OF : 70 SURGEON: Nacho Ramirez MD PIPE STEM ALIGNER: NITESH Li Case was done with assistance of surgical PA because of the complexity of the case. ANESTHESIOLOGIST: Elier Segura MD ANESTHESIA: General. PRE-OP DIAGNOSIS: Left C5-6 herniated nucleus pulposus. POST-OP DIAGNOSIS: Left C5-6 herniated nucleus pulposus. OPERATIVE PROCEDURE: The patient underwent anterior cervical diskectomy and fusion at C5-6 with PEEK interbody cage with locally harvested autologous bone graft and DBX and anterior plate. ESTIMATED BLOOD LOSS: Minimal per anesthesia records. SUMMARY: The patient is a very summary 47-year-old female with complaints of neck pain radiating to the left upper extremity. MRI revealed large left C5-6 herniated nucleus pulposus. After failing conservative treatment modalities, she was offered the option of surgical intervention in the form of anterior cervical diskectomy and fusion. After explaining expectation, limitations, and possible complications of the procedure to the patient and her with complications including, but not limited to, bleeding, infection, risk of injury to adjacent structures, coma, paralysis, , need for additional procedures, anesthesia risk, stroke, blindness, cancer, instability, hardware failure, pseudoarthrosis, recurrent laryngeal nerve injury, need for additional procedures, Samaria's syndrome, anesthesia risk, the patient was agreeable to proceed with surgery. Informed consent was obtained. The patient understood that her condition may not improve, in fact may get worse after the surgery and she may need to have additional procedure in the future. She also understood that operative plan will be modified according to the intraoperative findings and conditions. DESCRIPTION OF PROCEDURE: The patient was brought to the operating room and was placed under general anesthesia by the anesthesia team. She was carefully positioned supine on regular table and all bony prominences were meticulously padded. Her skin was prepped and draped in the standard fashion. After appropriate surgical pause and patient identification, a small right paramedian incision was marked on the skin with the assistance of intraoperative arthroscopic imaging. The skin was infiltrated with local anesthetic and a #10 surgical blade was used to incise the skin. The incision was carried down to platysma and self- retaining retractors were introduced into the field after undermining of the skin with Metzenbaum scissors. The platysma was gently divided and it was undermined with Metzenbaum scissors. The plane between the medial border of the sternocleidomastoid and the medial structures were then gently developed with sharp and blunt dissection. Then the prevertebral fascia was readily identified and was gently divided. Correct intraoperative level was verified with intraoperative fluoroscopic imaging and second identification was performed. This shadowline self- retaining retractors were introduced further into the field and two Sherwood pins were used to help with distraction of the disk space. Diskectomy was performed at the C5-6 level after incising the annulus fibrosus with 15 surgical blade. The anterior osteophyte was gently removed with Kerrison punches that was saved for the arthrodesis part of the procedure. Diskectomy was carried down with use of pituitary rongeurs and Kerrison punches, curettes and high-speed drill under microscopic identification. After removing the majority of the disk in the exposed area, defect of the posterior longitudinal ligament at the left side was identified and through that a large piece of herniated disk was gently removed. The posterior longitudinal ligament was gently divided with #1 Kerrison punches and the dura was found to be free of any pressure phenomenon after performing bilateral foraminotomies at the same level. After copious irrigation and confirmation of meticulous hemostasis and meticulous inspection, the self- retaining retractors were removed as well as the Sherwood pins while intraoperative fluoroscopic imaging confirmed excellent placement of both hardware. A Jemal drain was then cannulated through separate stab wound incision and then the wound was closed in layers with 2- 0 interrupted Vicryl sutures to approximate the platysma and 2-0 interrupted Vicryl suture to approximate the subcutaneous tissue while the skin was covered with Dermabond and sterile dressings. At the end of the procedure, all counts were reported to be correct. The patient remained hemodynamically stable throughout the case. She was then extubated and was transferred to the Recovery in excellent condition. The case was done with the assistance of the surgical PA because of the complexity of the case. [id number]/CPS #: [id number] NATHAN
[2018-04-04] MEDS: Benzocaine/Menthol LOZ* 1 LOZENGE MT PRN ×4 (02:32→18:41)
[2018-04-04] MEDS: HYDROcodone/ACETAMIN 5-325 MG* 1 TAB PO PRN (06:55)
[2018-04-04] MEDS ORDERED: oxyCODONE/Acetamin 5/325 MG* TAB PO PRN (07:09)
[2018-04-04] MEDS ORDERED: Lactated Ringers 250 ml Bag* 250 ML IV ONE (07:15)
[2018-04-04] MEDS: oxyCODONE/Acetamin 5/325 MG* TAB PO PRN ×4 (07:20→20:03)
--- NOTE | 2018-04-04 08:04 | RAD ---
HISTORY: Post op ACD F C5-6. COMPARISONS: CT dated March 07, 2013 VIEWS: 2, frontal and lateral views of the cervical spine FINDINGS: The cervical spine is visualized from the skull base through C7-T1. ALIGNMENT: The alignment is normal. VERTEBRAL BODIES: The patient is status post anterior cervical fusion at C5-C6. There is no hardware failure or osteolysis. JOINTS: There is no subluxation or dislocation. The facet joints are unremarkable. INTERVERTEBRAL DISCS: Intervertebral graft material is noted at C5-C6. SOFT TISSUE: A surgical drain is noted. OTHER: The skull base is normal. The lung apices are clear. IMPRESSION: STATUS POST ANTERIOR CERVICAL FUSION AT C5-C6
--- NOTE | 2018-04-04 08:13 | RAD ---
INDICATION: Anterior cervical discectomy and fusion C5-C6 COMPARISON: March 06, 2018 FINDINGS: 26.9 seconds of fluoroscopy were provided for the neurosurgical department. Fluoroscopic spot imaging of the cervical spine were obtained for operative control and show and show anterior cervical spinal fusion C5-C6 . CPT II Codes: G9500 (fluoro time doc)
--- NOTE | 2018-04-04 11:08 | PN ---
Progress Note - Progress Note Date of Service: 04/04/18 SOAP: Subjective: []No events ON. Mild difficulty swallowing. Tolerates liquids well. Ambulates. Mild low SBP, patient asymptomatic , has hx of hypotension at baseline. Preop LUE pain and numbness resolved. Objective: []VSS Wound soft,clean,dry Jemal drain output noted. Drain removed. Catheter appeared to be intact. Patient tolerated procedure well. AAOx3, HIRAM, CN II-XII grossly intact Motor 5/5 all extremities Sensory grossly intact to light touch. Assessment: []47 yof POD#1 C5-6 ACDF Plan: []Monitor VS, Neurochecks MJ collar Encourage ambulation. DC planning. Claudio Ramirez MD
[2018-04-05] MEDS: Benzocaine/Menthol LOZ* 1 LOZENGE MT PRN ×5 (00:02→21:22)
[2018-04-05] MEDS: HYDROcodone/ACETAMIN 5-325 MG* 1 TAB PO PRN ×3 (04:10→08:16)
--- NOTE | 2018-04-05 12:54 | PN ---
Progress Note - Progress Note Date of Service: 04/05/18 SOAP: Subjective: []No events ON. Mild difficulty swallowing improving. Tolerates po well. Ambulates. Voids. Wants to go home. Objective: [] VSS Wound soft,clean,dry AAOx3, HIRAM, CN II-XII grossly intact Motor 5/5 all extremities Sensory grossly intact to light touch. Assessment: []47 yof POD#2 C5-6 ACDF Plan: []Monitor VS, Neurochecks MJ collar Encourage ambulation. DC planning. Claudio Ramirez MD
[2018-04-05] MEDS ORDERED: traMADol TAB* 50 MG PO PRN (15:05)
[2018-04-05] MEDS: oxyCODONE/Acetamin 5/325 MG* TAB PO PRN (15:15)
[2018-04-05] MEDS: oxyCODONE TAB* 5 MG TAB PO PRN ×2 (18:39→22:54)
[2018-04-06] MEDS: oxyCODONE TAB* 5 MG TAB PO PRN ×3 (03:12→11:37)
[2018-04-06] MEDS: Benzocaine/Menthol LOZ* 1 LOZENGE MT PRN (03:13)
--- NOTE | 2018-04-06 13:26 | PN ---
Progress Note - Progress Note Date of Service: 04/06/18 SOAP: Subjective: []No events ON. Swallowing improving. Tolerates po well. Ambulates. Voids. Wants to go home. Objective: []VSS Wound soft,clean,dry AAOx3, HIRAM, CN II-XII grossly intact Motor 5/5 all extremities Sensory grossly intact to light touch. Assessment: []47 yof POD#3 C5-6 ACDF Plan: [] Monitor VS, Neurochecks MJ collar Encourage ambulation. DC today. DC instructions were given. Claudio Ramirez MD
[2018-04-06 13:32] VITALS: BP 91/57
== END 2018-04-06 14:15 | disposition home or self-care (01) | DRG 23 ==
LOC: AA 12:17 → SSU 20:20
PROVIDERS: ADMIT Neurological Surgery; ATTEND Neurological Surgery
PROC: 0RB30ZZ Excision of Cervical Vertebral Disc, Open Approach (ICD-10-PCS; 2018-04-03)
PROC: 0RG10A0 Fusion of Cervical Vertebral Joint with Interbody Fusion Device, Anterior Approach, Anterior Column, Open Approach (ICD-10-PCS; principal; 2018-04-03 15:00)
DX: M50.122 Cervical disc disorder at C5-C6 level with radiculopathy (principal); M43.12 Spondylolisthesis, cervical region; K59.00 Constipation, unspecified; F41.9 Anxiety disorder, unspecified; M50.321 Other cervical disc degeneration at C4-C5 level; M48.02 Spinal stenosis, cervical region
CPT/HCPCS: 72040; 76001; 81025; A9270-GY; C1713; C1776; C9359; J1100; J1170; J2001; J2250; J2270; J2405; J2704; J3010; J3370